=== PATIENT | male | born 1935 | race Hispanic/Latino ===

== ENCOUNTER 2020-03-15 09:10 | Emergency (ER) | payer MEDICARE, OTHER ==
[~2020-03-15] VITALS: Ht 165.1 cm; Wt 67.6 kg
[~2020-03-15 09:10] MED LIST: FELODIPINE ER10 MG PO; LISINOPRIL40 MG PO; LOVASTATIN40 MG PO; METOPROLOL TART25 MG PO; PRILOSEC20 MG PO
--- NOTE | 2020-03-15 09:25 | NUR ---
Patient breathing 40+ times per minute with oxygen saturation in the 70s and 80s on 15L NRB. ER MD at bedside and the decision was made to intubate. 0927 - 20 of Etomidate given IV 0928 - 100 of Succinylcholine given IV 0929 - 7.5 ET tube advanced with glydescope assistance to a depth of 26 at the lips with good bilateral chest rise and lung sounds 0930 - heart rate 94, Resp 20, BP 78/42, 93% 0931 - 20mcg of epi given IV 0932 - Heart rate 86, BP 115/45, resp 24, 94% Patient placed on ventilator with 100% FIO2 and 20peep.
[2020-03-15] MEDS ORDERED: EPINEPHRINE HCL SYRINGE ONE (09:28)
[2020-03-15] MEDS ORDERED: SODIUM CHLORIDE 0.9% 1000ML 1,000 ML ONE ×2 (09:30→11:50)
--- NOTE | 2020-03-15 09:38 | Emergency Department Note ---
History of Present Illnes History of Present Illness History of Present Illness This is a 84 year old male Chief Complaint Comment Patient in from [facility] via EMS with reports of shortness of breath and hypoxia with sats in the 80s. Patient was previously admitted to [facility] for a fall and subsequent brain bleed. Patient was discharged from [place] to [facility] and he presents to us lethargic/obtunded with no verbal response and no eye opening to any stimuli. Patient hypoxic in the 70s and 80s on 15L non rebreather mask. 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 Any updates have been documented here. Past Medical History Other Medical History: high cholesterol, acid reflux Other Surgery: cardiac stents, back surgery, Other Last Tetanus: unknown Review of Systems ROS Narrative Unable to obtain ROS: Unable to obtain due to (Unresonsive) Physical Exam Related Data Allergies: Coded Allergies: Tetanus Vaccines & Toxoid (Verified Allergy, Unknown, 07/04/13) Vital signs reviewed: Yes Physical Exam CONSTITUTIONAL Constitutional: Present well-developed, Present cachectic; Absent well-nourished HENT HENT: Present normocephalic, Present atraumatic, Present oropharynx clear/moist, Present nose normal, Present other (C spine in place, post inscisional no erythema) HENT L/R: Present left ext ear normal, Present right ext ear normal EYES Eyes: Reports PERRL, Reports conjunctivae normal NECK Neck: Present ROM normal PULMONARY Pulmonary: Present breath sounds normal, Present respiratory distress; Absent effort normal CARDIOVASCULAR Cardiovascular: Present regular rhythm, Present heart sounds normal, Present capillary refill normal, Present normal rate GASTROINTESTINAL Abdominal: Present soft, Present nontender, Present bowel sounds normal GENITOURINARY Genitourinary: Present exam deferred SKIN Skin: Present warm, Present dry MUSCULOSKELETAL Musculoskeletal: Present ROM normal NEUROLOGICAL Neurological: Present other (Unresponsive); Absent alert, Absent oriented x 3 PSYCHOLOGICAL Psychological: Present other (Unresponsive) Procedures 12 Lead ECG Interpretation ECG Interpretation : Date: Mar 15, 2020 Rhythm: sinus rhythm Rate: normal QRS axis: left ST segments normal: Yes T waves normal: Yes Clinical Impression: non-specific ECG Intubation Time out performed: Yes Sedative: Etomidate Paralytic: Succinylcholine Laryngoscope: Juan Miguel Endotracheal tube size: 7.5 ET tube uncuffed: Yes Tube secured depth (cm): 26 Tube secured location: lips Tube placement confirmation: visualize tube passing cords, equal breath sounds bilaterally, no breath sounds over epigastrium Patient tolerated procedure: well Complications: hypotension Additional comments Push dose epinephrine given x 3 Critical Care Time Total Critical Care Time (min): 45 Time ED Physician saw patient: 09:10 Critical care time exclusive o: separately billable procedures Critcal care necessary due to: READING INSTRUCTOR failure or compromise, respiratory failure Critcal care time spent by me: interpret cardiac output measures, evaluation patient response to tx, examination of patient, obtaining hx from patient/surrogate, order/perform tx or interventions, order/review laboratory studies, order/review radiographic studies, pulse oximetry, re-evaluation of patient condition, review of old charts, ventilator management Assessment & Plan Medical Decision Making MDM 84-year-old male with past medical history significant for recent fall and time unknown subarachnoid hemorrhage presents for respiratory distress. Patient was initially saturating in the 70s and room air. Nonrebreather brought him up to the low 80s he is subsequently intubated. Workup shows elevated white blood cell count. He was discussed with Dr. Jonatan Nichole at [facility] and will transfer ER to ER for Respiratory failure. Sepsis suspected at time of antibiotic order. Lactic acid was repeated if initial >2 30cc/kg crystalloid bolus was given. Vasopressors were started. Reassessment Reassessment time: 11:40 Reassessment BP stabilized Assessment & Plan Final Impression: (1) Respiratory failure Depart Disposition: TRANS TO OTHER [facility] Home Meds Reported Medications Felodipine (FELODIPINE ER) 10 Mg Tab.er.24h, 10 MG PO daily 07/03/13 Lovastatin (LOVASTATIN) 40 Mg Tablet, 40 MG PO daily 07/03/13 Metoprolol Tartrate (METOPROLOL TARTRATE) 25 Mg Tablet, 25 MG PO BID 07/03/13 Omeprazole (PRILOSEC) 20 Mg Capsule.dr, 20 MG PO DAILY 07/03/13 Lisinopril (LISINOPRIL) 40 Mg Tablet, 40 MG PO daily 07/03/13 Medications in the ED Epinephrine HCl 1 ea STK-MED ONCE .ROUTE ; Start 03/15/20 at 09:28; Stop 03/15/20 at 09:22; Status DC Sodium Chloride 1,000 ml @ STK-MED ONCE .ROUTE ; Start 03/15/20 at 09:30; Stop 03/15/20 at 09:24; Status DC CANDICE GLOVER MD Mar 15, 2020 09:38
--- OUTSIDE RECORDS SUMMARY | 2020-03-15 09:41 | XMS REPORT | Continuity of Care Document ---
Author Author [facility] t Organization [facility] Address [address] [place] [address] Phone Unavailable Care Team Providers Care Cutter Brake Lining Name Role Phone Unavailable Unavailable Payers Payer Name Policy Type Policy Number Effective Date Expiration Date S ource Problems This patient has no known problems. Allergies, Adverse Reactions, Alerts Allergy Name Allergy Type Status Severity Reaction(s) Onset Date Inacti ve Date Treating Clinician Comments Source No Known Allergies DA Active U 2019-04-12 00:00:00 [facility] No Known Contrast Allergies DA Active U 2006-10-06 00:00: 00 [facility] No Known Food Allergies DA Active U 2006-10-06 00:00:00 [facility] No Known Other Allergies DA Active U 2006-10-06 00:00:00 [facility] TETANUS DA Active U 2006-10-06 00:00:00 [facility] Medications This patient has no known medications. Procedures This patient has no known procedures. Results Test Description Test Time Test Comments Results Result Comments Source INTERVERTEBRAL DISC 2020-03-11 15:43:00 RUN DATE: 03/11/20 [place] - Lab PAGE 1 RUN TIME: 1543 Specimen Inquiry RUN USER: INTERFACE PATIENT: KB VACA LOC: ROJAS U #: [id number] AGE/SX: 84/M ROOM: [facility] RE03/06/20REG DR: Louie Farrell MD : 33 BED: A DIS: 03/10/20 STATUS: DIS IN TLOC: SPEC #: [id number] RECD: 03/10/20 STATUS: DERRICK RENegrito #: [id number] COLLIN: 03/09/20- SUBM DR: Louie Farrell MD ENTERED: 03/10/20 SP TYPE: INT DISC OTHR DR: No Primary or Family Physician Dre Browning MD, Dang Thanh MD Qureshi, Salah Uddin MDORDERED: GROSS COPIES TO: No Primary or Family Physician Dre Browning MD [address] [place] [address] Little Hernandez MD [address] [place] [address] Dexter Hayward MD [address] [place] [address] Louie Farrell MD [address] [place] [address] PROCEDURES: GROSS (03/11/20-111) TISSUES: CERVICAL VERTEBRA, NOS - DISC CLINICAL HISTORY COLLECTION DATE: 03/09/20 CERVICAL SPINAL STENOSIS WITH MYELOPATHY CONTINUED ON NEXT PAGE RUN DATE: 03/11/20 [facility] PAGE 2 RUN TIME: 1543 Specimen Inquiry RUN USER: INTERFACE SPEC #: [id number] PATIENT: KB VACA #[id number] (Continued) FINAL DIAGNOSIS Cervical disc, C4-5 and C5- 6, anterior cervical discectomy: INTERVERTEBRAL DISC MATERIAL BONE NEGATIVE FOR MALIGNANCY DMW/tito D 24667, 10288 MACROSCOPIC The specimen is received in formalin labeled with the patient's name, "cervical disc" and consists of irregular fragments of light barker fibrous type tissue and small fragments of possible bone. The specimen measures 3.0 x 2.5 x 0.5 cm in aggregate. Lead Engineer portions of tissue are submitted for decalcification and follow-up histologic evaluation in a single cassette. GROSS PERFORMED AT [facility] [address] [place] [address] [phone] MICROSCOPIC All of the stains, including any controls performed, stain appropriately. MICROSCOPIC PERFORMED AT [facility] [address] [place] [address] [phone] PERFORM[address] SITE Diagnosis performed at: [facility] [address] [facility] [place] [address] Signed SIGNATURE ON FILE Jenise Marcelino MD 03/11/20 1543 END OF REPORT - XR C-SPINE 2-3 VIEWS 2020-03-10 09:41:00 FAX: Dre Chilel MD [phone] [place]: B St: [facility] FAX: Louie Gan [facility] [phone] Name: KB VACA [facility] : 1935 Age/S: 84/M Citlali Trevon [facility] Unit #: [id number] Loc: V.[address] [place] [address] Phys: Dre Browning MD Acct: [id number] Dis Date: Status: ADM IN PHONE #: [phone] Exam Date: 03/10/2020 09 FAX #: [phone] Reason: Status post fusion EXAMS: CPT CODE: [id number] XR C-SPINE 2-3 VIEWS 43722 HISTORY: Post fusion. Location: [facility]. COMPARISON: None available. Cervical fusion with metallic plate and bone graft from C4 through C6 is in gross anatomic alignment although limited on the lateral view for C5 and C6 due to overlapping shoulder. Uncovertebral mago ints are narrowed. Soft tissue swelling from surgery. Osteopenia. Lung apices are clear. IMPRESSION: Gross anatomic alignment from C4 through C6 with metallic internal fixation plate and bone graft. C5 and C6 are partially obscured by overlapping shoulder on the lateral view. at 0941 Reported and signed by: Curtis Kyle M.D. CC: Dre Browning MD; Louie Farrell Technologist: Cherelle Bucio, RT(R); Coty Welch RT(R) Trnarrd Date/Time/By: 03/10/2020 (0941) : By: [email or web address] Orig Print D/T: S: 03/10/2020 (6747) PAGE 1 Signed Report COVID 19 Asymptomatic IH AG 2020-03-08 14:01:00 Test Item COVID 19 Asymptomatic IH AG (test code = COVNONPUIAG) NEGATIVE - MRI C-SPINE W/O [id number] 15:40:00 FAX: Dre Chilel MD [phone] [place]: B St: ADM FAX: Louie Gan [phone] Name: KB VACA [facility] : 1935 Age/S: 84/M Citlali Lester oleksandr Unit #: [id number] Loc: [place] [address] Phys: Dre Browning MD Acct: [id number] Dis Date: Status: ADM IN PHONE #: [phone] Exam Date: 03/07/2020 1522 FAX #: [phone] Reason: r/o cord contusion EXAMS: CPT CODE: [id number] MRI C-SPINE W/O CONT 50011 REASON FOR EXAM: r/o cord contusion Exam Order Date: 03/07/2020 12:52 PM Attending M.D.: Dre Browning MD Comparison: CT scan of the cervical spine the previous afternoon Procedure: - MRI C-SPINE W/O CONT FINDINGS: Sagittal and axial images of the cervical spine were obtained in in T1, T2, and proton den sity with fat saturation. No intravenous gadolinium was given. There is no fracture or spondylolisthesis of the cervical spine. The heights of the cervical spine are preserved. However there is height loss of the intervertebral discs throughout the cervical spine. C 2-C3: No foraminal narrowing or central canal narrowing. C3-C4: Disc bulge causes mild central canal narrowing and moderate to severe bilateral fora anna narrowing. C4-C5: Disc osteophyte complex causes severe narrowing of the central canal and bilateral neuroforamina. C5-C6: Disc osteophy te complex with facet degeneration results in severe narrowing of the cent ral canal and bilateral foramina. C6-C7: Disc osteophyte complex results i n moderate to severe central canal narrowing and moderate to severe bilate ral foraminal narrowing. C7-T1: Central canal and neuroforamina are widely patent. There is increased T2 signal of the spinal cord from the level of C4 to the level of C6. 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 Location: [facility] at 1540 Reported and signed by: Francis Valenzuela MD PAGE 1 Signed Report (CONTINUED) FAX: Dre Chilel MD [phone] [place]: St: ADM FAX: Y Louie Farrell [phone] Name: LAKISHA VACA [facility] : 1935 Age/S : 84/M [address] [facility] Unit #: [id number] Loc: [place] [address] Phys: Dre Browning MD Acct: [id number] Dis Date: Status: ADM IN PHONE #: [phone] Exam Date: 03/07/2020 1522 FAX #: [phone] Reason: r/o cord contusion EXAMS: CPT CODE: [id number] MRI C-SPINE W/O CONT 02504 <Continued> CC: Dre Browning MD; Louie Farrell [facility] Technologist: RT BOGDAN - MRI Trnarrd Date/Time/By: 03/07/2020 (1540) : By: [email or web address] Orig Print D/T: S: 03/07/2020 (7691) PAGE 2 Signed Report - CT HEAD/BRAIN W/O [id number] 07:24:00 Name: KB VACA [facility] : 1935 Age/S: 84 / M [address] [facility] Unit #: [id number] Loc: [place] [address] Phys: Lara Foster NP Acct: [id number] Dis Date: Status: ADM IN PHONE #: [phone] Exam Date: 03/07/2020 0430 FAX #: [phone] Reason: SAH Eval EXAMS: CPT CODE: [id number] CT HEAD/BRAIN W/O CONT 20621 HISTORY: Follow-up subarachnoid hemorrhage. COMPARISON: Head CT from previous day. CT brain without contrast: Automated exposure control. Location: [facility]. Trace right superior frontal subarachnoid hemorrhage noted again and is unchanged. No new hemorrhage. No extra-axial collections are noted. No acute territorial vascular infarction is noted. The sulci, gyri, ventricles and subarachnoid spaces and the basilar cisterns are normal for patient's age. No herniation or hydrocephalus or midline shift is noted. Mild periventricular ischemic gliosis is noted. Age- appropriate atrophy is noted as well. Portions of the visualized paranasal sinuses are normal. No obvious bony calvarial defect is noted. IMPRESSION: Trace right superior frontal subarachnoid hemorrhage is noted again and unchanged. No new hemorrhage. No extra-axial collections. No acute sahara torial vascular infarction. No herniation or hydrocephalus or midline shift. Chronic white matter ischemic disease and atro phy . at 0724 Reported and signed by: Curtis espitia M.D. PAGE 1 Signed Report (CONTINUED) Name: KB VACA [facility] : 1935 Age/S: 84 / M [address] Unit #: [id number] Loc: [place] [address] Ph ys: Lara Foster NP Acct: [id number] Dis Date: Status: ADM IN PHONE #: [phone] Exam Date: 03/07/2020 043 FAX #: [phone] Reason: SAH Eval EXAMS: CPT CODE: [id number] CT HEAD/BRAIN W/O CONT 17711 <Continued> CC: Lara Foster NP; Louie Farrell Technologist:BRYN HURT, RT; Leroy May CTDI: DLP: Trnscb Date/Time: 03/07/2020 (723) [email or web address] Orig Print D/T: S: 03/07/2020 (726) PAGE 2 Signed Report COMPREHENSIVE METABOLIC [id number] 04:05:00* Test Item Value Reference Range Interpretation Comments SODIUM (test code = NA) 138 mmol/L 136-145 N POTASSIUM (test code = K) 3.8 mmol/L 3.5-5.1 N CHLORIDE (test code = CL) 105.0 mmol/L 98-107 N CARBON DIOXIDE (test code = CO2) 25.0 mmol/L 21-32 N ANION GAP (test code = GAP) 11.8 10-20 N GLUCOSE (test code = GLU) 92 mg/dL 74-106 N BLOOD UREA NITROGEN (test code = BUN) 12 mg/dL 7-18 N GLOMERULAR FILTRATION RATE (test code = GFR) > 60 mL/min >=60 Estimated GFR by using Modified MDRD formula.Chronic kidney disease is defined as either kidney damageor GFR <60 mL/min/1.73 m2 for >3 months. CREATININE (test code = CREAT) 0.60 mg/dL 0.7-1.3 L BUN/CREATININE RATIO (test code = BUN/CREA) 21.2 10-20 H TOTAL PROTEIN (test code = PROT) 6.3 gram/dL 6.4-8.2 L ALBUMIN (test code = ALB) 3.0 g/dL 3.4-5.0 L GLOBULIN (test code = GLOB) 3.3 gram/dL 2.7-4.2 N ALBUMIN/GLOBULIN RATIO (test code = A/G) 0.9 0.75-1.50 N CALCIUM (test code = CA) 8.0 mg/dL 8.5-10.1 L BILIRUBIN TOTAL (test code = BILT) 0.60 mg/dL 0.0-1.0 N SGOT/AST (test code = AST) 16 IUnit/L 15-37 N SGPT/ALT (test code = ALT) 15 IUnit/L 12-78 N ALKALINE PHOSPHATASE TOTAL (test code = ALKP) 66 IUnit/L 45-117 N Note change in reference range due to change in reagent. [id number] 04:05:00* Test Item Value Reference Range Interpretation Comments PHOSPHORUS (test code = PHOS) 3.4 mg/dL 2.5-4.9 N [id number] 04:05:00* Test Item Value Reference Range Interpretation Comments MAGNESIUM (test code = MAG) 2.4 mg/dL 1.8-2.4 N CALCIUM [id number] 04:05:00* Test Item Value Reference Range Interpretation Comments CALCIUM IONIZED (test code = KULWINDER) 1.18 mmol/L 1.12-1.32 N COMPREHENSIVE METABOLIC [id number] 03:34:00* Test Item Value Reference Range Interpretation Comments SODIUM (test code = NA) 138 mmol/L 136-145 N POTASSIUM (test code = K) 3.8 mmol/L 3.5-5.1 N CHLORIDE (test code = CL) 105.0 mmol/L 98-107 N CARBON DIOXIDE (test code = CO2) 25.0 mmol/L 21-32 N ANION GAP (test code = GAP) 11.8 10-20 N GLUCOSE (test code = GLU) 92 mg/dL 74-106 N BLOOD UREA NITROGEN (test code = BUN) 12 mg/dL 7-18 N GLOMERULAR FILTRATION RATE (test code = GFR) > 60 mL/min >=60 Estimated GFR by using Modified MDRD formula.Chronic kidney disease is defined as either kidney damageor GFR <60 mL/min/1.73 m2 for >3 months. CREATININE (test code = CREAT) 0.60 mg/dL 0.7-1.3 L BUN/CREATININE RATIO (test code = BUN/CREA) 21.2 10-20 H TOTAL PROTEIN (test code = PROT) 6.3 gram/dL 6.4-8.2 L ALBUMIN (test code = ALB) 3.0 g/dL 3.4-5.0 L GLOBULIN (test code = GLOB) 3.3 gram/dL 2.7-4.2 N ALBUMIN/GLOBULIN RATIO (test code = A/G) 0.9 0.75-1.50 N CALCIUM (test code = CA) 8.0 mg/dL 8.5-10.1 L BILIRUBIN TOTAL (test code = BILT) 0.60 mg/dL 0.0-1.0 N SGOT/AST (test code = AST) 16 IUnit/L 15-37 N SGPT/ALT (test code = ALT) 15 IUnit/L 12-78 N ALKALINE PHOSPHATASE TOTAL (test code = ALKP) 66 IUnit/L 45-117 N Note change in reference range due to change in reagent. [id number] 03:34:00* Test Item Value Reference Range Interpretation Comments PHOSPHORUS (test code = PHOS) 3.4 mg/dL 2.5-4.9 N [id number] 03:34:00* Test Item Value Reference Range Interpretation Comments MAGNESIUM (test code = MAG) 2.4 mg/dL 1.8-2.4 N CALCIUM [id number] 03:34:00* Test Item Value Reference Range Interpretation Comments CALCIUM IONIZED (test code = KULWINDER) mmol/L 1.12-1.32 COMPREHENSIVE METABOLIC [id number] 03:13:00* Test Item Value Reference Range Interpretation Comments SODIUM (test code = NA) 138 mmol/L 136-145 N POTASSIUM (test code = K) 3.8 mmol/L 3.5-5.1 N CHLORIDE (test code = CL) 105.0 mmol/L 98-107 N CARBON DIOXIDE (test code = CO2) mmol/L 21-32 ANION GAP (test code = GAP) 10-20 GLUCOSE (test code = GLU) mg/dL 74-106 BLOOD UREA NITROGEN (test code = BUN) mg/dL 7-18 GLOMERULAR FILTRATION RATE (test code = GFR) mL/min >=60 CREATININE (test code = CREAT) mg/dL 0.7-1.3 BUN/CREATININE RATIO (test code = BUN/CREA) 10-20 TOTAL PROTEIN (test code = PROT) gram/dL 6.4-8.2 ALBUMIN (test code = ALB) g/dL 3.4-5.0 GLOBULIN (test code = GLOB) gram/dL 2.7-4.2 ALBUMIN/GLOBULIN RATIO (test code = A/G) 0.75-1.50 CALCIUM (test code = CA) mg/dL 8.5-10.1 BILIRUBIN TOTAL (test code = BILT) mg/dL 0.0-1.0 SGOT/AST (test code = AST) IUnit/L 15-37 SGPT/ALT (test code = ALT) IUnit/L 12-78 ALKALINE PHOSPHATASE TOTAL (test code = ALKP) IUnit/L 45-117 [id number] 03:13:00* Test Item Value Reference Range Interpretation Comments PHOSPHORUS (test code = PHOS) mg/dL 2.5-4.9 [id number] 03:13:00* Test Item Value Reference Range Interpretation Comments MAGNESIUM (test code = MAG) mg/dL 1.8-2.4 CALCIUM [id number] 03:13:00* Test Item Value Reference Range Interpretation Comments CALCIUM IONIZED (test code = KULWINDER) mmol/L 1.12-1.32 CBC W/AUTO [id number] 03:08:00* Test Item Value Reference Range Interpretation Comments WHITE BLOOD CELL (test code = WBC) 9.7 K/mm3 4.5-12.5 N RED BLOOD CELL (test code = RBC) 4.23 mill/mm3 4.0-5.8 N HEMOGLOBIN (test code = HGB) 13.6 gram/dL 13.0-17.5 N HEMATOCRIT (test code = HCT) 40.7 % 42.0-52.0 L MEAN CELL VOLUME (test code = MCV) 96.2 fL 80-98 N MEAN CELL HGB (test code = MCH) 32.2 picogram 27.0-33.0 N MEAN CELL HGB CONCETRATION (test code = MCHC) 33.4 gram/dL 33.0-36. 0 N RED CELL DISTRIBUTION WIDTH (test code = RDW) 12.5 % 11.6-16. 2 N RED CELL DISTRIBUTION WIDTH SD (test code = RDW-SD) 43.9 fL 37 .0-51.0 N PLATELET COUNT (test code = PLT) 197 K/mm3 150-450 N MEAN PLATELET VOLUME (test code = MPV) 10.4 fL 6.7-11.0 N NEUTROPHIL % (test code = NT%) 69.8 % 39.0-69.0 H IMMATURE GRANULOCYTE % (test code = IG%) 0.3 % 0.0-5.0 N LYMPHOCYTE % (test code = LY%) 18.7 % 25.0-55.0 L MONOCYTE % (test code = MO%) 10.3 % 0.0-10.0 H EOSINOPHIL % (test code = EO%) 0.5 % 0.0-5.0 N BASOPHIL % (test code = BA%) 0.4 % 0.0-1.0 N NUCLEATED RBC % (test code = NRBC%) 0.0 % 0-0 N NEUTROPHIL # (test code = NT#) 6.77 K/mm3 1.8-7.7 N IMMATURE GRANULOCYTE # (test code = IG#) 0.03 x10 3/uL 0-0.03 N LYMPHOCYTE # (test code = LY#) 1.82 K/mm3 1.0-5.0 N MONOCYTE # (test code = MO#) 1.00 K/mm3 0-0.8 H EOSINOPHIL # (test code = EO#) 0.05 K/mm3 0.0-0.5 N BASOPHIL # (test code = BA#) 0.04 K/mm3 0.0-0.2 N NUCLEATED RBC # (test code = NRBC#) 0.00 K/mm3 0.0-0.1 N MANUAL DIFF REQUIRED (test code = MDIFF) NO PROTHROMBIN [id number] 03:03:00* Test Item Value Reference Range Interpretation Comments PROTHROMBIN TIME PATIENT (test code = PTP) 13.1 seconds 9.0-14.0 N INTERNATIONAL NORMAL RATIO (test code = INR) 1.1 0.8-1.2 N The therapeutic range for oral anticoagulant therapy formost indications is an international normalized ratio (INR)of between 2.0 and 3.0. The recommended therapeutic INRrange for various clinical situations is listed below: Clinical Situation INR range Pulmonary e mbolism treatment (2.0-3.0)Venous thrombosis treatmentVenous thrombosis prophylaxis (high risk surgery)Prevention of systemic embolism from: Acute myocardial infarction Valvular heart disease Atrial fibrillation Mechanical prosthetic heart valves (2.5-3.5) IS PATIENT ON ANTICOAGULANTS? N- DUP AB/PEL/SC [id number] 23:26:00 [facility] 1935 [facility]S: 84 / M [address] [facility]: [id number] Loc: [place] [address] Phys: Louie Farrell MD Acct: [id number] Dis Date: Status: ADM IN PHONE #: Exam Date: 03/06/2020 7271 FAX #: Reason: ENLARGE SCROTUM EXAMS: CPT CODE: [id number] DUP AB/PEL/SC COMP 56221 HISTORY: Pain Locat ion: C3 FINDINGS: Sonographic images of the scrotum were ob tained. The testicles are mildly heterogeneous in appearance bilaterally with testicular flow noted bilaterally. Small right hydrocele in the larg e left hydrocele is demonstrated. No discrete testicular mass identified. IMPRESSION: 1. Small right-sided hydrocele wi th large left hydrocele. 2. Normal testicular flow bilaterally. at 2326 Reported and signed by: Tay Zuleta MD CC: Louie Farrell Technologist: Pati BOSWELL Trnarb Date/Time: 03/06/2020 (2 326) [id number] Orig Print D/T: S: 03/06/2020 (6355) P robe: PAGE 1 Signed Report - US SCROTUM AND [id number] 23:26:00 Name: KB VACA [facility] : 1935 Age/S: 84 / M [address] Unit #: [id number] Loc: [place], [place] [address] Phys: Alvin Gonzales MD Acct: [id number] Di s Date: Status: ADM IN PHONE #: Exam Date: 03/06/20202244 FAX #: [phone] Reason: scrotal enlargement, urinary retention EXAMS: CPT CODE: [id number] US SCROTUM AND CNTS 09428 HISTORY: Pain Locat ion: C3 FINDINGS: Sonographic images of the scrotum were ob tained. The testicles are mildly heterogeneous in appearance bilaterally with testicular flow noted bilaterally. Small right hydrocele in the larg e left hydrocele is demonstrated. No discrete testicular mass identified. IMPRESSION: 1. Small right-sided hydrocele wi th large left hydrocele. 2. Normal testicular flow bilaterally. at 2326 Reported and signed by: Tay Zuleta MD CC: Mary Gonzales MD; Louie Farrell Technologist: Pati BOSWELL Trnarb Date/Time: 03/06/2020 (2 326) [email or web address] Orig Print D/T: S: 03/06/2020 (8238) P robe: PAGE 1 Signed Report URINALYSIS [id number] 19:00:00* Test Item Value Reference Range Interpretation Comments UA COLOR (test code = COLU) COLORLESS YELLOW A UA APPEARANCE (test code = APPU) CLEAR CLEAR UA GLUCOSE DIPSTICK (test code = DGLUU) NEGATIVE mg/dL NEGATIVE UA BILIRUBIN DIPSTICK (test code = BILU) NEGATIVE mg/dL NEGATIVE UA KETONE DIPSTICK (test code = KETU) TRACE mg/dL NEGATIVE A UA SPECIFIC GRAVITY (test code = SGU) 1.005 1.001-1.035 UA BLOOD DIPSTICK (test code = LYLA) 0.03 mg/dL (Trace) mg/dL NEGATI VE A UA PH DIPSTICK (test code = KELSEY) 7.5 5.0-8.0 UA PROTEIN DIPSTICK (test code = PROU) NEGATIVE mg/dL NEGATIVE UA UROBILINIOGEN DIPSTICK (test code = URO) Normal mg/dL NEGATIVE UA NITRITE DIPSTICK (test code = SUJATHA) NEGATIVE NEGATIVE UA LEUKOCYTE ESTERASE W REFLEX (test code = LEUUR) NEGATIVE Duane/uL NEGATIVE UA WBC (test code = WBCU) per HPF 0-5 UA RBC (test code = RBCU) per HPF 0-5 UA EPITHELIAL CELLS (test code = EPIU) per HPF Few UA BACTERIA (test code = BACU) per HPF NONE Urine Source? Clean CatchDRUGS OF ABUSE SCREEN [id number] 19:00:00* Test Item Value Reference Range Interpretation Comments URN COCAINE (test code = COCAURN) NEGATIVE <300 ng/mL URN CANNABINOIDS (test code = CANNABURN) NEGATIVE <50 ng/mL URN AMPHETAMINE (test code = AMPHETURN) NEGATIVE <1000 ng/mL URN BARBITURATE (test code = BARBITURN) NEGATIVE <200 ng/mL URN BENZODIAZEPINE (test code = BENZOURN) NEGATIVE <200 ng/mL URN OPIATES (test code = OPIATURN) NEGATIVE <300 ng/mL URN PHENCYCLIDINE (PCP) (test code = PHENCURN) NEGATIVE <25 ng/ mL URN METHADONE (test code = METHAURN) NEGATIVE <300 ng/mL Urine Source? Clean CatchURINALYSIS [id number] 19:00:00* Test Item Value Reference Range Interpretation Comments UA COLOR (test code = COLU) COLORLESS YELLOW A UA APPEARANCE (test code = APPU) CLEAR CLEAR UA GLUCOSE DIPSTICK (test code = DGLUU) NEGATIVE mg/dL NEGATIVE UA BILIRUBIN DIPSTICK (test code = BILU) NEGATIVE mg/dL NEGATIVE UA KETONE DIPSTICK (test code = KETU) TRACE mg/dL NEGATIVE A UA SPECIFIC GRAVITY (test code = SGU) 1.005 1.001-1.035 UA BLOOD DIPSTICK (test code = LYLA) 0.03 mg/dL (Trace) mg/dL NEGATI VE A UA PH DIPSTICK (test code = KELSEY) 7.5 5.0-8.0 UA PROTEIN DIPSTICK (test code = PROU) NEGATIVE mg/dL NEGATIVE UA UROBILINIOGEN DIPSTICK (test code = URO) Normal mg/dL NEGATIVE UA NITRITE DIPSTICK (test code = SUJATHA) NEGATIVE NEGATIVE UA LEUKOCYTE ESTERASE W REFLEX (test code = LEUUR) NEGATIVE Duane/uL NEGATIVE UA WBC (test code = WBCU) 0-5 per HPF 0-5 UA RBC (test code = RBCU) 3-5 #/HPF 0-5 UA EPITHELIAL CELLS (test code = EPIU) None seen per HPF FEW UA BACTERIA (test code = BACU) NONE SEEN #/HPF NONE Urine Source? Clean CatchDRUGS OF ABUSE SCREEN [id number] 19:00:00* Test Item Value Reference Range Interpretation Comments URN COCAINE (test code = COCAURN) NEGATIVE <300 ng/mL URN CANNABINOIDS (test code = CANNABURN) NEGATIVE <50 ng/mL URN AMPHETAMINE (test code = AMPHETURN) NEGATIVE <1000 ng/mL URN BARBITURATE (test code = BARBITURN) NEGATIVE <200 ng/mL URN BENZODIAZEPINE (test code = BENZOURN) NEGATIVE <200 ng/mL URN OPIATES (test code = OPIATURN) NEGATIVE <300 ng/mL URN PHENCYCLIDINE (PCP) (test code = PHENCURN) NEGATIVE <25 ng/ mL URN METHADONE (test code = METHAURN) NEGATIVE <300 ng/mL Urine Source? Clean CatchURINALYSIS [id number] 18:57:00* Test Item Value Reference Range Interpretation Comments UA COLOR (test code = COLU) YELLOW UA APPEARANCE (test code = APPU) CLEAR UA BILIRUBIN DIPSTICK (test code = BILU) NEGATIVE UA SPECIFIC GRAVITY (test code = SGU) 1.001-1.035 UA PH DIPSTICK (test code = KELSEY) 5.0-8.0 UA UROBILINIOGEN DIPSTICK (test code = URO) mg/dL 0.0-0.2 UA NITRITE DIPSTICK (test code = SUJATHA) NEGATIVE UA LEUKOCYTE ESTERASE W REFLEX (test code = LEUUR) NEG ATIVE UA WBC (test code = WBCU) per HPF 0-5 UA RBC (test code = RBCU) per HPF 0-5 UA EPITHELIAL CELLS (test code = EPIU) per HPF Few UA BACTERIA (test code = BACU) per HPF NONE Urine Source? Clean CatchDRUGS OF ABUSE SCREEN [id number] 18:57:00* Test Item Value Reference Range Interpretation Comments URN COCAINE (test code = COCAURN) NEGATIVE <300 ng/mL URN CANNABINOIDS (test code = CANNABURN) NEGATIVE <50 ng/mL URN AMPHETAMINE (test code = AMPHETURN) NEGATIVE <1000 ng/mL URN BARBITURATE (test code = BARBITURN) NEGATIVE <200 ng/mL URN BENZODIAZEPINE (test code = BENZOURN) NEGATIVE <200 ng/mL URN OPIATES (test code = OPIATURN) NEGATIVE <300 ng/mL URN PHENCYCLIDINE (PCP) (test code = PHENCURN) NEGATIVE <25 ng/ mL URN METHADONE (test code = METHAURN) NEGATIVE <300 ng/mL Urine Source? Clean CatchB-TYPE NATRIURETIC [id number] 17:34:00* Test Item Value Reference Range Interpretation Comments B-TYPE NATRIURETIC PEPTIDE (test code = BNP) 571.14 pgram/mL 0-100 H BASIC METABOLIC [id number] 17:14:00* Test Item Value Reference Range Interpretation Comments SODIUM (test code = NA) 135 mmol/L 136-145 L POTASSIUM (test code = K) 3.9 mmol/L 3.5-5.1 N CHLORIDE (test code = CL) 102.0 mmol/L 98-107 N CARBON DIOXIDE (test code = CO2) 27.0 mmol/L 21-32 N ANION GAP (test code = GAP) 9.9 10-20 L GLUCOSE (test code = GLU) 87 mg/dL 74-106 N BLOOD UREA NITROGEN (test code = BUN) 14 mg/dL 7-18 N GLOMERULAR FILTRATION RATE (test code = GFR) > 60 mL/min >=60 Estimated GFR by using Modified MDRD formula.Chronic kidney disease is defined as either kidney damageor GFR <60 mL/min/1.73 m2 for >3 months. CREATININE (test code = CREAT) 0.70 mg/dL 0.7-1.3 N BUN/CREATININE RATIO (test code = BUN/CREA) 19.2 10-20 N CALCIUM (test code = CA) 8.2 mg/dL 8.5-10.1 L HEPATIC FUNCTION [id number] 17:14:00* Test Item Value Reference Range Interpretation Comments TOTAL PROTEIN (test code = PROT) 7.1 gram/dL 6.4-8.2 N ALBUMIN (test code = ALB) 3.4 g/dL 3.4-5.0 N GLOBULIN (test code = GLOB) 3.7 gram/dL 2.7-4.2 N ALBUMIN/GLOBULIN RATIO (test code = A/G) 0.9 0.75-1.50 N BILIRUBIN TOTAL (test code = BILT) 0.40 mg/dL 0.0-1.0 N BILIRUBIN DIRECT (test code = BILD) 0.12 mg/dL 0.0-0.20 N SGOT/AST (test code = AST) 16 IUnit/L 15-37 N SGPT/ALT (test code = ALT) 18 IUnit/L 12-78 N ALKALINE PHOSPHATASE TOTAL (test code = ALKP) 71 IUnit/L 45-117 N Note change in reference range due to change in reagent. CREATINE KINASE (CK)2020-03-06 17:14:00* Test Item Value Reference Range Interpretation Comments CREATINE KINASE (CK) (test code = CK) 179 IUnit/L 26-208 N [id number] 17:14:00* Test Item Value Reference Range Interpretation Comments LIPASE (test code = LIP) 130 U/L 73.0-393.0 N [id number] 17:14:00* Test Item Value Reference Range Interpretation Comments MAGNESIUM (test code = MAG) 2.3 mg/dL 1.8-2.4 N [id number] 17:14:00* Test Item Value Reference Range Interpretation Comments TROPONIN-I (test code = TROPI) 0.017 ng/mL 0-0.045 N [id number] 17:14:00* Test Item Value Reference Range Interpretation Comments ALCOHOL (test code = ALC) < 3 mg/dL 0.0-3.0 N -- INTERPRETIVE DATA NOTE: POSITIVE SCREENING RESULTS SHOULD BE CONSIDERED PRESUMPTIVE.WHEN COLLECTED FOR MEDICAL PURPOSES ONLY. SPECIMEN WILL NOTBE COLLECTED BY CHAIN OF CUSTODY.IF A CONFIRMATION OF POSITIVE RESULTS IS DESIRED, ACONFIRMATION TEST MUST BE REQUESTED BY THE PHYSICIAN AT ANADDITIONAL CHARGE TO THE PATIENT. BASIC METABOLIC [id number] 17:06:00* Test Item Value Reference Range Interpretation Comments SODIUM (test code = NA) 135 mmol/L 136-145 L POTASSIUM (test code = K) 3.9 mmol/L 3.5-5.1 N CHLORIDE (test code = CL) 102.0 mmol/L 98-107 N CARBON DIOXIDE (test code = CO2) mmol/L 21-32 ANION GAP (test code = GAP) 10-20 GLUCOSE (test code = GLU) mg/dL 74-106 BLOOD UREA NITROGEN (test code = BUN) mg/dL 7-18 GLOMERULAR FILTRATION RATE (test code = GFR) mL/min >=60 CREATININE (test code = CREAT) mg/dL 0.7-1.3 BUN/CREATININE RATIO (test code = BUN/CREA) 10-20 CALCIUM (test code = CA) mg/dL 8.5-10.1 HEPATIC FUNCTION [id number] 17:06:00* Test Item Value Reference Range Interpretation Comments TOTAL PROTEIN (test code = PROT) gram/dL 6.4-8.2 ALBUMIN (test code = ALB) g/dL 3.4-5.0 GLOBULIN (test code = GLOB) gram/dL 2.7-4.2 ALBUMIN/GLOBULIN RATIO (test code = A/G) 0.75-1.50 BILIRUBIN TOTAL (test code = BILT) mg/dL 0.0-1.0 BILIRUBIN DIRECT (test code = BILD) mg/dL 0.0-0.20 SGOT/AST (test code = AST) IUnit/L 15-37 SGPT/ALT (test code = ALT) IUnit/L 12-78 ALKALINE PHOSPHATASE TOTAL (test code = ALKP) IUnit/L 45-117 CREATINE KINASE (CK)2020-03-06 17:06:00* Test Item Value Reference Range Interpretation Comments CREATINE KINASE (CK) (test code = CK) IUnit/L 26-208 [id number] 17:06:00* Test Item Value Reference Range Interpretation Comments LIPASE (test code = LIP) U/L 73.0-393.0 [id number] 17:06:00* Test Item Value Reference Range Interpretation Comments MAGNESIUM (test code = MAG) mg/dL 1.8-2.4 [id number] 17:06:00* Test Item Value Reference Range Interpretation Comments TROPONIN-I (test code = TROPI) ng/mL 0-0.045 [id number] 17:06:00* Test Item Value Reference Range Interpretation Comments ALCOHOL (test code = ALC) mg/dL 0-3 - CT C-SPINE W/O [id number] 17:02:00 Name: KB V[facility] : 1935 Age/S: 84 / M [address] [facility] Unit #: [id number] Loc: [place] [address] Phys: Mary Gonzales MD Acct: [id number] Dis Date: Status: REG ER PHONE #: [phone] Exam Date: 03/06/2020 1642 FAX #: [phone] Reason: dizzy, fall EXAMS: CPT CODE: [id number] CT C-SPINE W/O CONTRAST 59099 HISTORY: dizzy, fall TECHNIQUE: Noncontrast 2.[address] of the head. 2.[address] of the cervical spine. Sagittal and coronal reformatted images were generated. . Examination acquired within 24 hours of arrival. Automated exposure control for dose reduction. COMPARISON: Brain MRI and head CT 11/16/2019 FINDINGS: HEAD CT: No lacerations or contusions of the scalp or facial soft tissues. Calvarium and skull base are intact. No acte or chronic infarct. No effacement of the sulci or ghosh-white matter interface. No acute hemorrhage. No intracranial mass, mass effect, or midline shift. Mild generalized atrophy. Mild patchy low densities appearance of the paraventricular region noted consistent with nonspecific white matter disease. No hydro cephalus.. Hyperdensity seen along the right superior frontal sulcus on se jennifer 3 image 51 measures 0.5 cm. Additional punctate hyperdensity within t he right precentral sulcus on series 3 image 56 is also noted. Visualized paranasal sinuses are clear. Mastoid air cells and middle e ar cavities are clear. Orbital contents are unremarkable. CERVICAL SPINE CT: No acute fracture of the cervical spine. No subluxation . Craniocervical and cervicothoracic articulations are appropriate. Vertebral body heights are preserved. Moderate to severe chronic degenerative changes of the cervical spine most significant at C5-C6. No p revertebral or paraspinal soft tissue abnormality. Visualized poste rior fossa contents are grossly unremarkable. Lung apices are clear. IMPRESSION: PAGE 1 Signed Report (CONTINUED) Name: KB [facility] : 1935 Age/S: 84 / M [address] [facility] Unit #: [id number] Loc: [place], [place] [address] Phys: Mary Gonzales MD Acct: [id number] Dis Date: Status: REG ER PHONE #: [phone] Exam Date: 03/06/2020 1642 FAX #: [phone] Reason: dizzy, fall EXAMS: CPT CODE: [id number] CT C-SPINE W/O CONTRAST 09222 < Continued> Small acute subarachnoid hemorrhage along the right superior frontal and precentral sulci. No acute abnormalities of the cervical spine. Mild generalized atrophy. Moderate chronic microvascular ischemic changes. Above findings discussed with Dr. Gonzales at 5:01 PM on 03/06/20. Location: [facility] at 1702 Reported and signed by: Johnny Bautista M.D. CC: Mary Gonzales MD Technologist:Nataliia Colin RT(R),CT; CTDI: DLP: Trnscb Date/Time: 03/06/2020 (170) [email or web address] Orig Print D/T: S: 03/06/2020 (9099) PAGE 2 Signed Report - CT HEAD/BRAIN W/O [id number] 17:02:00 Name: KB VACA [facility] : 1935 Age/S: 84 / M [address] [facility]: [id number] Loc: [place] [address] Phys: Alvin Gonzales MD Acct: [id number] Di s Date: Status: REG ER PHONE #: Exam Date: 03/06/2020 1642 FAX #: Reason: dizzy, fall EXAMS: CPT CODE: [id number] CT HEAD/BRAIN W/O CONT 07426 HISTORY: dizzy, fall TECHNIQUE: Noncontrast 2.[address] of the head. 2.[address] of the cervical spine. Sagittal and coronal reformatted images were g enerated. . Examination acquired within 24 hours of arrival. Automated exp osure control for dose reduction. COMPARISON: Brain MRI and head C T 11/16/2019 FINDINGS: HEAD CT: No lacerations or contusions of the scalp or facial soft tissues. Calvarium and skull ba se are intact. No acte or chronic infarct. No effacement of the olivares lci or ghosh-white matter interface. No acute hemorrhage. No intracranial m ass, mass effect, or midline shift. Mild generalized atroph y. Mild patchy low densities appearance of the paraventricular region note d consistent with nonspecific white matter disease. No hydro cephalus.. Hyperdensity seen along the right superior frontal sulcus on se jennifer 3 image 51 measures 0.5 cm. Additional punctate hyperdensity within t he right precentral sulcus on series 3 image 56 is also noted. Visualized paranasal sinuses are clear. Mastoid air cells and middle e ar cavities are clear. Orbital contents are unremarkable. CERVICAL SPINE CT: No acute fracture of the cervical spine. No subluxation . Craniocervical and cervicothoracic articulations are appropriate. Vertebral body heights are preserved. Moderate to severe chronic degenerative changes of the cervical spine most significant at C5-C6. No p revertebral or paraspinal soft tissue abnormality. Visualized poste rior fossa contents are grossly unremarkable. Lung apices are clear. IMPRESSION: PAGE 1 Signed Report (CONTINUED) Name: KB [facility] : 1935 Age/S: 84 / M [facility] Unit #: [id number] Loc: [place] [address] Phys: Mary Gonzales MD Acct: [id number] Dis Date: Status: REG ER PHONE #: [phone] Exam Date: 03/06/2020 1642 FAX #: [phone] Reason: dizzy, fall EXAMS: CPT CODE: [id number] CT HEAD/BRAIN W/O CONT 29286 < Continued> Small acute subarachnoid hemorrhage along the right superior frontal and precentral sulci. No acute abnormalities of the cervical spine. Mild generalized atrophy. Moderate chronic microvascular ischemic changes. Above findings discussed with Dr. Gonzales at 5:01 PM on 03/06/20. Location: [facility] at 1702 Reported and signed by: Johnny Bautista M.D. CC: Mary Gonzales MD Technologist:Nataliia Colin RT(R),CT; CTDI: DLP: Trnscb Date/Time: 03/06/2020 (170) [email or web address] Orig Print D/T: S: 03/06/2020 (170) PAGE 2 Signed Report PROTHROMBIN [id number] 17:01:00* Test Item Value Reference Range Interpretation Comments PROTHROMBIN TIME PATIENT (test code = PTP) 12.8 seconds 9.0-14.0 N INTERNATIONAL NORMAL RATIO (test code = INR) 1.1 0.8-1.2 N The therapeutic range for oral anticoagulant therapy formost indications is an international normalized ratio (INR)of between 2.0 and 3.0. The recommended therapeutic INRrange for various clinical situations is listed below: Clinical Situation INR range Pulmonary e mbolism treatment (2.0-3.0)Venous thrombosis treatmentVenous thrombosis prophylaxis (high risk surgery)Prevention of systemic embolism from: Acute myocardial infarction Valvular heart disease Atrial fibrillation Mechanical prosthetic heart valves (2.5-3.5) IS PATIENT ON ANTICOAGULANTS? NTHROMBOPLASTIN TIME [id number] 17:01:00* Test Item Value Reference Range Interpretation Comments THROMBOPLASTIN TIME PARTIAL (test code = PTT) 35.5 seconds 23.0-37. 0 N IS PATIENT ON ANTICOAGULANTS? NCBC W/O [id number] 16:46:00* Test Item Value Reference Range Interpretation Comments WHITE BLOOD CELL (test code = WBC) 9.4 K/mm3 4.5-12.5 N RED BLOOD CELL (test code = RBC) 4.19 mill/mm3 4.0-5.8 N HEMOGLOBIN (test code = HGB) 13.7 gram/dL 13.0-17.5 N HEMATOCRIT (test code = HCT) 40.5 % 42.0-52.0 L MEAN CELL VOLUME (test code = MCV) 96.7 fL 80-98 N MEAN CELL HGB (test code = MCH) 32.7 picogram 27.0-33.0 N MEAN CELL HGB CONCETRATION (test code = MCHC) 33.8 gram/dL 33.0-36. 0 N RED CELL DISTRIBUTION WIDTH (test code = RDW) 12.6 % 11.6-16. 2 N PLATELET COUNT (test code = PLT) 198 K/mm3 150-450 N MEAN PLATELET VOLUME (test code = MPV) 9.9 fL 6.7-11.0 N - XR CHEST 1 [id number] 16:30:00 FAX: Mary Gonzales MD [phone] [place]: B St: REG Name: KB MEDRANO [facility] : [birth year] Age/S: 84/M [facility] Unit #: [id number] Loc: [place] [address] Phys: Mary Gonzales MD Acct: [id number] Dis Date: Status: REG ER PHONE #: [phone] Exam Date: 03/06/2020 1627 FAX #: [phone] Reason: WEAKNESS EXAMS: CPT CODE: [id number] XR CHEST 1 V 51489 REASON FOR EXAM: WEAKNESS Exam Order Date: 03/06/2020 4:03 PM Ordering M.D.: Mary Gonzales MD PROCEDURE: - XR CHEST 1 V COMPARISON: Chest x-ray 04/12/2019 FINDINGS: Lines/Tubes: None The lungs are clear. There is no pleural effusion or pneumothorax. Pulmonary vascularity is within normal limits. Cardio mediastinal silhouette and mediastinal contours are unchanged when account ing for differences in technique. Musculoskeletal structures and visualized portions of the upper abdomen are also unchanged. IMPRESSION: No acute cardiopulmonary process. Location: [facility] Electronically Signed by Johnny Bautista M.D. on 2019 at 1630 Reported and signed by: Johnny Bautista M.D. CC: Mary Gonzales MD Technologist: Aicha Ingram RT(R) Trnscrd Date/Time/By: 0 03/06/2020 (163) : By: [email or web address] [facility] Print D/T: S: 03/06/2020 (8933) PAGE 1 Signed Report AB [id number] 18:54:00* Test Item Value Reference Range Interpretation Comments AB TREPONEMA (test code = TREPAB) Nonreactive Index NonReactive BASIC METABOLIC [id number] 18:40:00* Test Item Value Reference Range Interpretation Comments SODIUM (test code = NA) 143 mmol/L 136-145 N POTASSIUM (test code = K) 3.7 mmol/L 3.5-5.1 N CHLORIDE (test code = CL) 109.0 mmol/L 98-107 H CARBON DIOXIDE (test code = CO2) 25.0 mmol/L 21-32 N ANION GAP (test code = GAP) 12.7 10-20 N GLUCOSE (test code = GLU) 131 mg/dL 74-106 H BLOOD UREA NITROGEN (test code = BUN) 18 mg/dL 7-18 N GLOMERULAR FILTRATION RATE (test code = GFR) > 60 mL/min >=60 Estimated GFR by using Modified MDRD formula.Chronic kidney disease is defined as either kidney damageor GFR <60 mL/min/1.73 m2 for >3 months. CREATININE (test code = CREAT) 0.80 mg/dL 0.7-1.3 N BUN/CREATININE RATIO (test code = BUN/CREA) 22.5 10-20 H CALCIUM (test code = CA) 8.4 mg/dL 8.5-10.1 L BASIC METABOLIC [id number] 18:38:00* Test Item Value Reference Range Interpretation Comments SODIUM (test code = NA) 143 mmol/L 136-145 N POTASSIUM (test code = K) 3.7 mmol/L 3.5-5.1 N CHLORIDE (test code = CL) 109.0 mmol/L 98-107 H CARBON DIOXIDE (test code = CO2) mmol/L 21-32 ANION GAP (test code = GAP) 10-20 GLUCOSE (test code = GLU) mg/dL 74-106 BLOOD UREA NITROGEN (test code = BUN) mg/dL 7-18 GLOMERULAR FILTRATION RATE (test code = GFR) mL/min >=60 CREATININE (test code = CREAT) mg/dL 0.7-1.3 BUN/CREATININE RATIO (test code = BUN/CREA) 10-20 CALCIUM (test code = CA) 8.4 mg/dL 8.5-10.1 L CBC W/O [id number] 18:22:00* Test Item Value Reference Range Interpretation Comments WHITE BLOOD CELL (test code = WBC) 6.7 K/mm3 4.5-12.5 N RED BLOOD CELL (test code = RBC) 4.47 mill/mm3 4.0-5.8 N HEMOGLOBIN (test code = HGB) 14.4 gram/dL 13.0-17.5 N HEMATOCRIT (test code = HCT) 42.5 % 42.0-52.0 N MEAN CELL VOLUME (test code = MCV) 95.1 fL 80-98 N MEAN CELL HGB (test code = MCH) 32.2 picogram 27.0-33.0 N MEAN CELL HGB CONCETRATION (test code = MCHC) 33.9 gram/dL 33.0-36. 0 N RED CELL DISTRIBUTION WIDTH (test code = RDW) 12.7 % 11.6-16. 2 N PLATELET COUNT (test code = PLT) 189 K/mm3 150-450 N MEAN PLATELET VOLUME (test code = MPV) 10.4 fL 6.7-11.0 N CBC W/O [id number] 18:19:00* Test Item Value Reference Range Interpretation Comments WHITE BLOOD CELL (test code = WBC) K/mm3 4.5-12.5 RED BLOOD CELL (test code = RBC) mill/mm3 4.0-5.8 HEMOGLOBIN (test code = HGB) 14.4 gram/dL 13.0-17.5 N HEMATOCRIT (test code = HCT) 42.5 % 42.0-52.0 N MEAN CELL VOLUME (test code = MCV) fL 80-98 MEAN CELL HGB (test code = MCH) picogram 27.0-33.0 MEAN CELL HGB CONCETRATION (test code = MCHC) gram/dL 33.0-36. 0 RED CELL DISTRIBUTION WIDTH (test code = RDW) % 11.6-16. 2 PLATELET COUNT (test code = PLT) K/mm3 150-450 MEAN PLATELET VOLUME (test code = MPV) fL 6.7-11.0 URINALYSIS [id number] 12:05:00* Test Item Value Reference Range Interpretation Comments UA COLOR (test code = COLU) Light-Yellow YELLOW UA APPEARANCE (test code = APPU) CLEAR CLEAR UA GLUCOSE DIPSTICK (test code = DGLUU) NEGATIVE mg/dL NEGATIVE UA BILIRUBIN DIPSTICK (test code = BILU) NEGATIVE mg/dL NEGATIVE UA KETONE DIPSTICK (test code = KETU) NEGATIVE mg/dL NEGATIVE UA SPECIFIC GRAVITY (test code = SGU) 1.011 1.001-1.035 UA BLOOD DIPSTICK (test code = LYLA) Negative mg/dL NEGATIVE UA PH DIPSTICK (test code = KELSEY) 6.0 5.0-8.0 UA PROTEIN DIPSTICK (test code = PROU) NEGATIVE mg/dL NEGATIVE UA UROBILINIOGEN DIPSTICK (test code = URO) Normal mg/dL NEGATIVE UA NITRITE DIPSTICK (test code = SUJATHA) NEGATIVE NEGATIVE UA LEUKOCYTE ESTERASE W REFLEX (test code = LEUUR) NEGATIVE Duane/uL NEGATIVE UA WBC (test code = WBCU) 0-5 per HPF 0-5 UA RBC (test code = RBCU) 0-2 #/HPF 0-5 UA EPITHELIAL CELLS (test code = EPIU) None seen per HPF FEW UA BACTERIA (test code = BACU) NONE SEEN #/HPF NONE UA MUCUS (test code = MUCU) FEW #/LPF FEW COMMENTS TO TUBE BENDER: OK TO STRAIGHT CATH FOR SAMPLE IF NEEDEDUrine Source? Clean CatchURINALYSIS [id number] 12:03:00* Test Item Value Reference Range Interpretation Comments UA COLOR (test code = COLU) Light-Yellow YELLOW UA APPEARANCE (test code = APPU) CLEAR CLEAR UA GLUCOSE DIPSTICK (test code = DGLUU) NEGATIVE mg/dL NEGATIVE UA BILIRUBIN DIPSTICK (test code = BILU) NEGATIVE mg/dL NEGATIVE UA KETONE DIPSTICK (test code = KETU) NEGATIVE mg/dL NEGATIVE UA SPECIFIC GRAVITY (test code = SGU) 1.011 1.001-1.035 UA BLOOD DIPSTICK (test code = LYLA) Negative mg/dL NEGATIVE UA PH DIPSTICK (test code = KELSEY) 6.0 5.0-8.0 UA PROTEIN DIPSTICK (test code = PROU) NEGATIVE mg/dL NEGATIVE UA UROBILINIOGEN DIPSTICK (test code = URO) Normal mg/dL NEGATIVE UA NITRITE DIPSTICK (test code = SUJATHA) NEGATIVE NEGATIVE UA LEUKOCYTE ESTERASE W REFLEX (test code = LEUUR) NEGATIVE Duane/uL NEGATIVE UA WBC (test code = WBCU) per HPF 0-5 UA RBC (test code = RBCU) per HPF 0-5 UA EPITHELIAL CELLS (test code = EPIU) per HPF Few UA BACTERIA (test code = BACU) per HPF NONE COMMENTS TO TUBE BENDER: OK TO STRAIGHT CATH FOR SAMPLE IF NEEDEDUrine Source? Clean Catch- MRI BRAIN W/O [id number] 10:34:00 FAX: Yony Arcos [phone] [place]: B St: ADM FAX: Louie Ganh [phone] Name: KB V[facility] : 1935 Age/S: 83/M [address] Unit #: [id number] Loc: [place] [address] Phys: Yony Arcos MD Acct: [id number] Dis Date: Status: ADM IN PHONE #: [phone] Exam Date: 11/02/2019 1015 FAX #: [phone] Reason: dizziness EXAMS: CPT CODE: [id number] MRI BRAIN W/O CONTRAST 81434 HISTORY: Dizziness. COMPARISON: Head CT from October 31, 2019. Location: [facility]. MRI brain without contrast: No acute territorial vascular or acute lacunar infarction. No MR evidence for hemorrhage is noted. Amyloid angiopathy noted. No extra-axial fluid collections. Chronic white matter ischemic disease in the per iventricular distribution and scattered lesions in the centrum semiovale w zuleyka matter and in the cortical and the subcortical deep white matter. No herniation, hydrocephalus or midline shift. Fourth ventricle is midline. Expected flow-voids noted within the major intracranial vasculature. VII and VIII nerve complex are symmetrical and normal. Mastoid air cells are clear. Mucosal thickening of the ethmoid air cells. Intraorbital contents are unremarkable. Midbrain, britta and medulla are without mass effect. No cerebellar ectopia. Pituitary gland, optic chiasm and co rpus callosum are normal with marked atrophy of the corpus callosum along with global cortical atrophy. Clivus demonstrating normal marrow signal. S ymmetrical hippocampi. No mesial temporal sclerosis. No parenchymal mass o n this noncontrast study. IMPRESSION: No acute territorial vascular or acute lacunar infarct. Chronic white lambert er ischemic disease. Electronically Signed by Carolyn Kyle on 0 11/02/2019 at 1034 Reported and signed by: Curtis Kyle M.D. CC: Yony Arcos MD; Louie Farrell Technolog ist: ERLINDA ROBERTSRT - MRI Trnscrd Date/Time/By : 11/02/2019 (1034) : By: [email or web address] Orig Print D/T: S: 11/02/2019 (103 7) PAGE 1 Signed Report BASIC METABOLIC [id number] 06:43:00* Test Item Value Reference Range Interpretation Comments SODIUM (test code = NA) 141 mmol/L 136-145 N POTASSIUM (test code = K) 3.6 mmol/L 3.5-5.1 N CHLORIDE (test code = CL) 109.0 mmol/L 98-107 H CARBON DIOXIDE (test code = CO2) 25.0 mmol/L 21-32 N ANION GAP (test code = GAP) 10.6 10-20 N GLUCOSE (test code = GLU) 118 mg/dL 74-106 H BLOOD UREA NITROGEN (test code = BUN) 14 mg/dL 7-18 N GLOMERULAR FILTRATION RATE (test code = GFR) > 60 mL/min >=60 Estimated GFR by using Modified MDRD formula.Chronic kidney disease is defined as either kidney damageor GFR <60 mL/min/1.73 m2 for >3 months. CREATININE (test code = CREAT) 0.80 mg/dL 0.7-1.3 N BUN/CREATININE RATIO (test code = BUN/CREA) 17.5 10-20 N CALCIUM (test code = CA) 8.3 mg/dL 8.5-10.1 L [id number] 06:43:00* Test Item Value Reference Range Interpretation Comments PHOSPHORUS (test code = PHOS) 2.6 mg/dL 2.5-4.9 N URIC [id number] 06:43:00* Test Item Value Reference Range Interpretation Comments URIC ACID (test code = URIC) 5.1 mg/dL 2.6-7.2 N [id number] 06:43:00* Test Item Value Reference Range Interpretation Comments MAGNESIUM (test code = MAG) 2.6 mg/dL 1.8-2.4 H VITAMIN [id number] 06:43:00* Test Item Value Reference Range Interpretation Comments VITAMIN B12 (test code = VITB12) 243 pg/mL 193-986 N FOLIC [id number] 06:43:00* Test Item Value Reference Range Interpretation Comments FOLIC ACID (test code = FOL) 17.0 ng/mL 3.10-17.50 N THYROID PROFILE [id number] 06:43:00* Test Item Value Reference Range Interpretation Comments T3 UPTAKE (test code = T3UP) 38.0 % 30.0-40.0 N T4 (THYROXINE) (test code = T4) 8.6 ug/dL 4.5-13.9 N T7 (FREE THYROXINE INDEX) (test code = T7) 3.26 FTI 1.3-5.1 N THYROID STIMULATING HORMONE (test code = TSH) 1.080 uIU/mL 0.36-3.7 4 N TSH REFERENCE RANGES: EUTHYROID: 0.35 - 4.3 mIU/mL HYPO : > 5.5 mIU/mL HYPER : < 0.35 mIU/mL [id number] 06:11:00* Test Item Value Reference Range Interpretation Comments AMMONIA (test code = AMM) 15 umol/L 11-32 N BASIC METABOLIC [id number] 06:03:00* Test Item Value Reference Range Interpretation Comments SODIUM (test code = NA) 141 mmol/L 136-145 N POTASSIUM (test code = K) 3.6 mmol/L 3.5-5.1 N CHLORIDE (test code = CL) 109.0 mmol/L 98-107 H CARBON DIOXIDE (test code = CO2) mmol/L 21-32 ANION GAP (test code = GAP) 10-20 GLUCOSE (test code = GLU) mg/dL 74-106 BLOOD UREA NITROGEN (test code = BUN) mg/dL 7-18 GLOMERULAR FILTRATION RATE (test code = GFR) mL/min >=60 CREATININE (test code = CREAT) mg/dL 0.7-1.3 BUN/CREATININE RATIO (test code = BUN/CREA) 10-20 CALCIUM (test code = CA) mg/dL 8.5-10.1 [id number] 06:03:00* Test Item Value Reference Range Interpretation Comments PHOSPHORUS (test code = PHOS) mg/dL 2.5-4.9 URIC [id number] 06:03:00* Test Item Value Reference Range Interpretation Comments URIC ACID (test code = URIC) mg/dL 2.6-7.2 [id number] 06:03:00* Test Item Value Reference Range Interpretation Comments MAGNESIUM (test code = MAG) mg/dL 1.8-2.4 VITAMIN [id number] 06:03:00* Test Item Value Reference Range Interpretation Comments VITAMIN B12 (test code = VITB12) pg/mL 193-986 FOLIC [id number] 06:03:00* Test Item Value Reference Range Interpretation Comments FOLIC ACID (test code = FOL) ng/mL 3.10-17.50 THYROID PROFILE [id number] 06:03:00* Test Item Value Reference Range Interpretation Comments T3 UPTAKE (test code = T3UP) % 30.0-40.0 T4 (THYROXINE) (test code = T4) ug/dL 4.5-13.9 T7 (FREE THYROXINE INDEX) (test code = T7) FTI 1.3-5.1 THYROID STIMULATING HORMONE (test code = TSH) uIU/mL 0.36-3.7 4 CBC W/AUTO [id number] 05:48:00* Test Item Value Reference Range Interpretation Comments WHITE BLOOD CELL (test code = WBC) 10.2 K/mm3 4.5-12.5 N RED BLOOD CELL (test code = RBC) 4.73 mill/mm3 4.0-5.8 N HEMOGLOBIN (test code = HGB) 15.1 gram/dL 13.0-17.5 N HEMATOCRIT (test code = HCT) 44.9 % 42.0-52.0 N MEAN CELL VOLUME (test code = MCV) 94.9 fL 80-98 N MEAN CELL HGB (test code = MCH) 31.9 picogram 27.0-33.0 N MEAN CELL HGB CONCETRATION (test code = MCHC) 33.6 gram/dL 33.0-36. 0 N RED CELL DISTRIBUTION WIDTH (test code = RDW) 12.7 % 11.6-16. 2 N RED CELL DISTRIBUTION WIDTH SD (test code = RDW-SD) 44.1 fL 37 .0-51.0 N PLATELET COUNT (test code = PLT) 187 K/mm3 150-450 N MEAN PLATELET VOLUME (test code = MPV) 10.5 fL 6.7-11.0 N NEUTROPHIL % (test code = NT%) 73.5 % 39.0-69.0 H IMMATURE GRANULOCYTE % (test code = IG%) 0.2 % 0.0-5.0 N LYMPHOCYTE % (test code = LY%) 15.3 % 25.0-55.0 L MONOCYTE % (test code = MO%) 10.1 % 0.0-10.0 H EOSINOPHIL % (test code = EO%) 0.4 % 0.0-5.0 N BASOPHIL % (test code = BA%) 0.5 % 0.0-1.0 N NUCLEATED RBC % (test code = NRBC%) 0.0 % 0-0 N NEUTROPHIL # (test code = NT#) 7.50 K/mm3 1.8-7.7 N IMMATURE GRANULOCYTE # (test code = IG#) 0.02 x10 3/uL 0-0.03 N LYMPHOCYTE # (test code = LY#) 1.56 K/mm3 1.0-5.0 N MONOCYTE # (test code = MO#) 1.03 K/mm3 0-0.8 H EOSINOPHIL # (test code = EO#) 0.04 K/mm3 0.0-0.5 N BASOPHIL # (test code = BA#) 0.05 K/mm3 0.0-0.2 N NUCLEATED RBC # (test code = NRBC#) 0.00 K/mm3 0.0-0.1 N MANUAL DIFF REQUIRED (test code = MDIFF) NO [id number] 02:57:00* Test Item Value Reference Range Interpretation Comments TROPONIN-I (test code = TROPI) 0.079 ng/mL 0-0.045 HH Results called to [id number] by V.LAB.GP 11/01/19 0257Critical results verified and read back by Nurse? Y COMMENTS TO TUBE BENDER: COLLECT 3 HOURS AFTER PREVIOUS [id number] 21:21:00* Test Item Value Reference Range Interpretation Comments TROPONIN-I (test code = TROPI) 0.066 ng/mL 0-0.045 HH Results called to [id number] by V.LAB.QUR 10/31/19 2121Critical results verified and read back by Nurse? Y COMMENTS TO TUBE BENDER: COLLECT 3 HOURS AFTER PREVIOUS SAMPLE- CT HEAD/BRAIN W/O [id number] 14:15:00 [facility] 1935 Age/S: 83 / M [place] [facility] Unit #: [id number] Loc: [place] [address] Phys: Yony Arcos MD Acct: [id number] Dis Date: Status: REG ER PHONE #: [phone] Exam Date: 10/31/2019 1403 FAX #: [phone] Reason: altered, syncope in ed EXAMS: CPT CODE: [id number] CT HEAD/BRAIN W/O CONT [id number] HISTORY: altered, syncope in ed TECHNIQUE: Noncontrast 2.[address] of the head. Examination acquired within 24 hours of arrival. Automated exposure control for dose reduction; DLP: 870 mGy-cm. COMPARISON: Same date, 2.5 hours earlier FINDINGS: No acute hemorrhage. No CT evidence of acute infarct. Mild periventricular chronic microvascular ischemic changes. No intracranial mass or mass effect. Moderate parenchymal atrophy. No hydrocephalus. No extra-axial fluid collection. Atherosclerotic vascular calcification of the carotid siphons. Trace bilateral maxillary sinus mucosal thickening. Mastoid air cells and middle ear cavities are clear. Bilateral lens implants. Calvarium and skull base are intact. IMPRESSION: No acute intracranial process. LOCATION: LP at 1415 Reported and signed by: Gabby Hernandez D.O. CC: Yony Arcos MD Technologist:Nuris Ken RT(R)(CT) CTDI: DLP: Trnscb Date/Time: 10/31/2019 (1415) [email or web address] Orig Print D/T: S: 10/31/2019 (1418) PAGE 1 Signed Report GLUBED 2019-10-31 13:51:00* Test Item Value Reference Range Interpretation Comments GLUBED (test code = GLUBED) 106 mg/dL 74-106 N Performed by certified deburring and tooling machine operator at [facility] BASIC METABOLIC [id number] 13:30:00* Test Item Value Reference Range Interpretation Comments SODIUM (test code = NA) 140 mmol/L 136-145 N POTASSIUM (test code = K) 4.3 mmol/L 3.5-5.1 N CHLORIDE (test code = CL) 104.9 mmol/L 98-107 N CARBON DIOXIDE (test code = CO2) 30.0 mmol/L 21-32 N ANION GAP (test code = GAP) 9.4 10-20 L GLUCOSE (test code = GLU) 55 mg/dL 74-106 L BLOOD UREA NITROGEN (test code = BUN) 12 mg/dL 7-18 N GLOMERULAR FILTRATION RATE (test code = GFR) > 60 mL/min >=60 Estimated GFR by using Modified MDRD formula.Chronic kidney disease is defined as either kidney damageor GFR <60 mL/min/1.73 m2 for >3 months. CREATININE (test code = CREAT) 0.20 mg/dL 0.7-1.3 L BUN/CREATININE RATIO (test code = BUN/CREA) 60.0 10-20 H CALCIUM (test code = CA) 8.6 mg/dL 8.5-10.1 N [id number] 13:30:00* Test Item Value Reference Range Interpretation Comments TROPONIN-I (test code = TROPI) 0.022 ng/mL 0-0.045 N CBC W/O [id number] 13:02:00* Test Item Value Reference Range Interpretation Comments WHITE BLOOD CELL (test code = WBC) 6.3 K/mm3 4.5-12.5 N RED BLOOD CELL (test code = RBC) 4.30 mill/mm3 4.0-5.8 N HEMOGLOBIN (test code = HGB) 13.8 gram/dL 13.0-17.5 N HEMATOCRIT (test code = HCT) 41.3 % 42.0-52.0 L MEAN CELL VOLUME (test code = MCV) 96.0 fL 80-98 N MEAN CELL HGB (test code = MCH) 32.1 picogram 27.0-33.0 N MEAN CELL HGB CONCETRATION (test code = MCHC) 33.4 gram/dL 33.0-36. 0 N RED CELL DISTRIBUTION WIDTH (test code = RDW) 12.4 % 11.6-16. 2 N PLATELET COUNT (test code = PLT) 188 K/mm3 150-450 N MEAN PLATELET VOLUME (test code = MPV) 11.1 fL 6.7-11.0 H CBC W/O [id number] 12:59:00* Test Item Value Reference Range Interpretation Comments WHITE BLOOD CELL (test code = WBC) K/mm3 4.5-12.5 RED BLOOD CELL (test code = RBC) mill/mm3 4.0-5.8 HEMOGLOBIN (test code = HGB) 13.8 gram/dL 13.0-17.5 N HEMATOCRIT (test code = HCT) % 42.0-52.0 MEAN CELL VOLUME (test code = MCV) fL 80-98 MEAN CELL HGB (test code = MCH) picogram 27.0-33.0 MEAN CELL HGB CONCETRATION (test code = MCHC) gram/dL 33.0-36. 0 RED CELL DISTRIBUTION WIDTH (test code = RDW) % 11.6-16. 2 PLATELET COUNT (test code = PLT) K/mm3 150-450 MEAN PLATELET VOLUME (test code = MPV) fL 6.7-11.0 - CT C-SPINE W/O [id number] 11:58:00 Name: KB VACA [facility] : 1935 Age/S: 83 / M [address] [facility] Unit #: [id number] Loc: [place] [address] Phys: Yony Arcos MD Acct: [id number] Dis Date: Status: PRE ER PHONE #: [phone] Exam Date: 10/31/2019 1140 FAX #: [phone] Reason: pain EXAMS: CPT CODE: [id number] CT C-SPINE W/O CONTRAST [id number] HISTORY: pain, head trauma TECHNIQUE: 2.[address] of the cervical spine. Sagittal and coronal reformatted images were generated. Automated exposure control for dose reduction. COMPARISON: None FINDINGS: Craniocervical and cervicothoracic articulations are appropriate. Degenerative changes of the anterior atlantoaxial joint. Cervical levoscoliosis and reversal of the lordosis. Grade 1 retrolisthesis at C4-C5. Vertebral body heights are preserved. Severe disc space loss with disc bulge, marginal osteophytes, and uncovertebral arthrosis from C3-C4 through C6-C7. Mild disc space loss with marginal osteophytes at C2-C3 and C7-T1. Mild cervical facet arthrosis. Severe central canal and bilateral foraminal stenosis from C3- C4 through C6-C7. No prevertebral or paraspinal soft tissue abnormality. Atherosclerotic vascular calcification of the carotid arteries and aortic arch. Lung apices are clear. IMPRESSION: No acute fracture or subluxation of the cervical spine. LOCATION: LP at 1158 Reported and signed by: Gabby Hernandez D.O. CC: Yony Arcos MD Technologist:Nuris Ken RT(R)(CT) CTDI: DLP: Trnscb Date/Time: 10/31/2019 (1158) [id number] Orig Print D/T: S: 10/31/2019 (5450) PAGE 1 Signed Report - CT HEAD/BRAIN W/O [id number] 11:55:00 Name: KB VACA [facility] : 1935 Age/S: 83 / M [address] [facility] Unit #: [id number] Loc: [place] [address] Phys: Yony Arcos MD Acct: [id number] Dis Date: Status: PRE ER PHONE #: [phone] Exam Date: 10/31/2019 1140 FAX #: [phone] Reason: dizziness, hit head, HTN urgency EXAMS: CPT CODE: [id number] CT HEAD/BRAIN W/O CONT 99769 HISTORY: dizziness, hit head, HTN urgency TECHNIQUE: Noncontrast 2.[address] of the head. Examination acquired within 24 hours of arrival. Automated exposure control for dose reduction; DLP: 870 mGy-cm. COMPARISON: 04/12/19 FINDINGS: No acute hemorrhage. No CT evidence of acute infarct. Mild periventricular chronic microvascular ischemic changes. No intracranial mass or mass effect. Moderate parenchymal atrophy. No hydrocephalus. No extra-axial fluid collection. Atherosclerotic vascular calcification of the carotid siphons. Trace bilateral maxillary sinus mucosal thickening. Mastoid air cells and middle ear cavities are clear. Bilateral lens implants. Calvarium and skull base are intact. IMPRESSION: No acute intracranial process. LOCATION: LP at 1155 Reported and signed by: Gabby Hernandez D.O. CC: Yony Arcos MD Technologist:Nuris Ken RT(R)(CT) CTDI: DLP: Trnscb Date/Time: 10/31/2019 (1465) [id number] Orig Print D/T: S: 10/31/2019 (9692) PAGE 1 Signed Report COMPREHENSIVE METABOLIC [id number] 05:43:00* Test Item Value Reference Range Interpretation Comments SODIUM (test code = NA) 131 mmol/L 136-145 L POTASSIUM (test code = K) 4.3 mmol/L 3.5-5.1 N CHLORIDE (test code = CL) 96.0 mmol/L 98-107 L CARBON DIOXIDE (test code = CO2) 29.0 mmol/L 21-32 N ANION GAP (test code = GAP) 10.3 10-20 N GLUCOSE (test code = GLU) 100 mg/dL 74-106 N BLOOD UREA NITROGEN (test code = BUN) 24 mg/dL 7-18 H GLOMERULAR FILTRATION RATE (test code = GFR) 58 mL/min >=60 Estimated GFR by using Modified MDRD formula.Chronic kidney disease is defined as either kidney damageor GFR <60 mL/min/1.73 m2 for >3 months. CREATININE (test code = CREAT) 1.20 mg/dL 0.7-1.3 N BUN/CREATININE RATIO (test code = BUN/CREA) 20.7 10-20 H TOTAL PROTEIN (test code = PROT) 6.9 gram/dL 6.4-8.2 N ALBUMIN (test code = ALB) 3.6 g/dL 3.4-5.0 N GLOBULIN (test code = GLOB) 3.3 gram/dL 2.7-4.2 N ALBUMIN/GLOBULIN RATIO (test code = A/G) 1.1 0.75-1.50 N CALCIUM (test code = CA) 8.8 mg/dL 8.5-10.1 N BILIRUBIN TOTAL (test code = BILT) 0.60 mg/dL 0.0-1.0 N SGOT/AST (test code = AST) 15 IUnit/L 15-37 N SGPT/ALT (test code = ALT) 24 IUnit/L 12-78 N ALKALINE PHOSPHATASE TOTAL (test code = ALKP) 68 IUnit/L 45-117 N Note change in reference range due to change in reagent. COMPREHENSIVE METABOLIC [id number] 05:33:00* Test Item Value Reference Range Interpretation Comments SODIUM (test code = NA) 131 mmol/L 136-145 L POTASSIUM (test code = K) 4.3 mmol/L 3.5-5.1 N CHLORIDE (test code = CL) 96.0 mmol/L 98-107 L CARBON DIOXIDE (test code = CO2) mmol/L 21-32 ANION GAP (test code = GAP) 10-20 GLUCOSE (test code = GLU) mg/dL 74-106 BLOOD UREA NITROGEN (test code = BUN) mg/dL 7-18 GLOMERULAR FILTRATION RATE (test code = GFR) mL/min >=60 CREATININE (test code = CREAT) mg/dL 0.7-1.3 BUN/CREATININE RATIO (test code = BUN/CREA) 10-20 TOTAL PROTEIN (test code = PROT) gram/dL 6.4-8.2 ALBUMIN (test code = ALB) g/dL 3.4-5.0 GLOBULIN (test code = GLOB) gram/dL 2.7-4.2 ALBUMIN/GLOBULIN RATIO (test code = A/G) 0.75-1.50 CALCIUM (test code = CA) mg/dL 8.5-10.1 BILIRUBIN TOTAL (test code = BILT) mg/dL 0.0-1.0 SGOT/AST (test code = AST) IUnit/L 15-37 SGPT/ALT (test code = ALT) IUnit/L 12-78 ALKALINE PHOSPHATASE TOTAL (test code = ALKP) IUnit/L 45-117 CBC W/AUTO [id number] 05:19:00* Test Item Value Reference Range Interpretation Comments WHITE BLOOD CELL (test code = WBC) 6.0 K/mm3 4.5-12.5 N RED BLOOD CELL (test code = RBC) 4.92 mill/mm3 4.0-5.8 N HEMOGLOBIN (test code = HGB) 15.9 gram/dL 13.0-17.5 N HEMATOCRIT (test code = HCT) 45.5 % 42.0-52.0 N MEAN CELL VOLUME (test code = MCV) 92.5 fL 80-98 N MEAN CELL HGB (test code = MCH) 32.3 picogram 27.0-33.0 N MEAN CELL HGB CONCETRATION (test code = MCHC) 34.9 gram/dL 33.0-36. 0 N RED CELL DISTRIBUTION WIDTH (test code = RDW) 12.0 % 11.6-16. 2 N RED CELL DISTRIBUTION WIDTH SD (test code = RDW-SD) 41.3 fL 37 .0-51.0 N PLATELET COUNT (test code = PLT) 199 K/mm3 150-450 N MEAN PLATELET VOLUME (test code = MPV) 10.7 fL 6.7-11.0 N NEUTROPHIL % (test code = NT%) 61.2 % 39.0-69.0 N IMMATURE GRANULOCYTE % (test code = IG%) 0.3 % 0.0-5.0 N LYMPHOCYTE % (test code = LY%) 25.2 % 25.0-55.0 N MONOCYTE % (test code = MO%) 11.6 % 0.0-10.0 H EOSINOPHIL % (test code = EO%) 1.2 % 0.0-5.0 N BASOPHIL % (test code = BA%) 0.5 % 0.0-1.0 N NUCLEATED RBC % (test code = NRBC%) 0.0 % 0-0 N NEUTROPHIL # (test code = NT#) 3.69 K/mm3 1.8-7.7 N IMMATURE GRANULOCYTE # (test code = IG#) 0.02 x10 3/uL 0-0.03 N LYMPHOCYTE # (test code = LY#) 1.52 K/mm3 1.0-5.0 N MONOCYTE # (test code = MO#) 0.70 K/mm3 0-0.8 N EOSINOPHIL # (test code = EO#) 0.07 K/mm3 0.0-0.5 N BASOPHIL # (test code = BA#) 0.03 K/mm3 0.0-0.2 N NUCLEATED RBC # (test code = NRBC#) 0.00 K/mm3 0.0-0.1 N CBC W/AUTO [id number] 05:15:00* Test Item Value Reference Range Interpretation Comments WHITE BLOOD CELL (test code = WBC) K/mm3 4.5-12.5 RED BLOOD CELL (test code = RBC) mill/mm3 4.0-5.8 HEMOGLOBIN (test code = HGB) 15.9 gram/dL 13.0-17.5 N HEMATOCRIT (test code = HCT) 45.5 % 42.0-52.0 N MEAN CELL VOLUME (test code = MCV) fL 80-98 MEAN CELL HGB (test code = MCH) picogram 27.0-33.0 MEAN CELL HGB CONCETRATION (test code = MCHC) gram/dL 33.0-36. 0 RED CELL DISTRIBUTION WIDTH (test code = RDW) % 11.6-16. 2 RED CELL DISTRIBUTION WIDTH SD (test code = RDW-SD) fL 37 .0-51.0 PLATELET COUNT (test code = PLT) K/mm3 150-450 MEAN PLATELET VOLUME (test code = MPV) fL 6.7-11.0 NEUTROPHIL % (test code = NT%) % 39.0-69.0 IMMATURE GRANULOCYTE % (test code = IG%) % 0.0-5.0 LYMPHOCYTE % (test code = LY%) % 25.0-55.0 MONOCYTE % (test code = MO%) % 0.0-10.0 EOSINOPHIL % (test code = EO%) % 0.0-5.0 BASOPHIL % (test code = BA%) % 0.0-1.0 NEUTROPHIL # (test code = NT#) K/mm3 1.8-7.7 LYMPHOCYTE # (test code = LY#) K/mm3 1.0-5.0 MONOCYTE # (test code = MO#) K/mm3 0-0.8 EOSINOPHIL # (test code = EO#) K/mm3 0.0-0.5 BASOPHIL # (test code = BA#) K/mm3 0.0-0.2 CBC W/O [id number] 05:15:00* Test Item Value Reference Range Interpretation Comments WHITE BLOOD CELL (test code = WBC) 6.4 K/mm3 4.5-12.5 N RED BLOOD CELL (test code = RBC) 4.70 mill/mm3 4.0-5.8 N HEMOGLOBIN (test code = HGB) 15.1 gram/dL 13.0-17.5 N HEMATOCRIT (test code = HCT) 43.8 % 42.0-52.0 N MEAN CELL VOLUME (test code = MCV) 93.2 fL 80-98 N MEAN CELL HGB (test code = MCH) 32.1 picogram 27.0-33.0 N MEAN CELL HGB CONCETRATION (test code = MCHC) 34.5 gram/dL 33.0-36. 0 N RED CELL DISTRIBUTION WIDTH (test code = RDW) 12.0 % 11.6-16. 2 N PLATELET COUNT (test code = PLT) 179 K/mm3 150-450 N MEAN PLATELET VOLUME (test code = MPV) 10.9 fL 6.7-11.0 N [id number] 20:47:00* Test Item Value Reference Range Interpretation Comments AMMONIA (test code = AMM) 25 umol/L 11-32 N CBC W/O [id number] 05:00:00* Test Item Value Reference Range Interpretation Comments WHITE BLOOD CELL (test code = WBC) 7.8 K/mm3 4.5-12.5 N RED BLOOD CELL (test code = RBC) 4.69 mill/mm3 4.0-5.8 N HEMOGLOBIN (test code = HGB) 15.3 gram/dL 13.0-17.5 N HEMATOCRIT (test code = HCT) 44.2 % 42.0-52.0 N MEAN CELL VOLUME (test code = MCV) 94.2 fL 80-98 N MEAN CELL HGB (test code = MCH) 32.6 picogram 27.0-33.0 N MEAN CELL HGB CONCETRATION (test code = MCHC) 34.6 gram/dL 33.0-36. 0 N RED CELL DISTRIBUTION WIDTH (test code = RDW) 12.1 % 11.6-16. 2 N PLATELET COUNT (test code = PLT) 191 K/mm3 150-450 N MEAN PLATELET VOLUME (test code = MPV) 10.9 fL 6.7-11.0 N CBC W/O [id number] 04:44:00* Test Item Value Reference Range Interpretation Comments WHITE BLOOD CELL (test code = WBC) K/mm3 4.5-12.5 RED BLOOD CELL (test code = RBC) mill/mm3 4.0-5.8 HEMOGLOBIN (test code = HGB) 15.3 gram/dL 13.0-17.5 N HEMATOCRIT (test code = HCT) 44.2 % 42.0-52.0 N MEAN CELL VOLUME (test code = MCV) fL 80-98 MEAN CELL HGB (test code = MCH) picogram 27.0-33.0 MEAN CELL HGB CONCETRATION (test code = MCHC) gram/dL 33.0-36. 0 RED CELL DISTRIBUTION WIDTH (test code = RDW) % 11.6-16. 2 PLATELET COUNT (test code = PLT) K/mm3 150-450 MEAN PLATELET VOLUME (test code = MPV) fL 6.7-11.0 COMPREHENSIVE METABOLIC [id number] 06:49:00* Test Item Value Reference Range Interpretation Comments SODIUM (test code = NA) 138 mmol/L 136-145 N POTASSIUM (test code = K) 4.0 mmol/L 3.5-5.1 N CHLORIDE (test code = CL) 105.0 mmol/L 98-107 N CARBON DIOXIDE (test code = CO2) 24.0 mmol/L 21-32 N ANION GAP (test code = GAP) 13.0 10-20 N GLUCOSE (test code = GLU) 88 mg/dL 74-106 N BLOOD UREA NITROGEN (test code = BUN) 16 mg/dL 7-18 N GLOMERULAR FILTRATION RATE (test code = GFR) > 60 mL/min >=60 Estimated GFR by using Modified MDRD formula.Chronic kidney disease is defined as either kidney damageor GFR <60 mL/min/1.73 m2 for >3 months. CREATININE (test code = CREAT) 0.90 mg/dL 0.7-1.3 N BUN/CREATININE RATIO (test code = BUN/CREA) 18.4 10-20 N TOTAL PROTEIN (test code = PROT) 6.6 gram/dL 6.4-8.2 N ALBUMIN (test code = ALB) 3.4 g/dL 3.4-5.0 N GLOBULIN (test code = GLOB) 3.2 gram/dL 2.7-4.2 N ALBUMIN/GLOBULIN RATIO (test code = A/G) 1.1 0.75-1.50 N CALCIUM (test code = CA) 8.6 mg/dL 8.5-10.1 N BILIRUBIN TOTAL (test code = BILT) 0.60 mg/dL 0.0-1.0 N SGOT/AST (test code = AST) 22 IUnit/L 15-37 N SGPT/ALT (test code = ALT) 26 IUnit/L 12-78 N ALKALINE PHOSPHATASE TOTAL (test code = ALKP) 64 IUnit/L 45-117 N Note change in reference range due to change in reagent. [id number] 06:49:00* Test Item Value Reference Range Interpretation Comments PHOSPHORUS (test code = PHOS) 3.0 mg/dL 2.5-4.9 N [id number] 06:49:00* Test Item Value Reference Range Interpretation Comments MAGNESIUM (test code = MAG) 2.5 mg/dL 1.8-2.4 H CALCIUM [id number] 06:49:00* Test Item Value Reference Range Interpretation Comments CALCIUM IONIZED (test code = KULWINDER) 1.23 mmol/L 1.12-1.32 N COMPREHENSIVE METABOLIC [id number] 06:38:00* Test Item Value Reference Range Interpretation Comments SODIUM (test code = NA) 138 mmol/L 136-145 N POTASSIUM (test code = K) 4.0 mmol/L 3.5-5.1 N CHLORIDE (test code = CL) 105.0 mmol/L 98-107 N CARBON DIOXIDE (test code = CO2) mmol/L 21-32 ANION GAP (test code = GAP) 10-20 GLUCOSE (test code = GLU) mg/dL 74-106 BLOOD UREA NITROGEN (test code = BUN) mg/dL 7-18 GLOMERULAR FILTRATION RATE (test code = GFR) mL/min >=60 CREATININE (test code = CREAT) mg/dL 0.7-1.3 BUN/CREATININE RATIO (test code = BUN/CREA) 10-20 TOTAL PROTEIN (test code = PROT) gram/dL 6.4-8.2 ALBUMIN (test code = ALB) g/dL 3.4-5.0 GLOBULIN (test code = GLOB) gram/dL 2.7-4.2 ALBUMIN/GLOBULIN RATIO (test code = A/G) 0.75-1.50 CALCIUM (test code = CA) mg/dL 8.5-10.1 BILIRUBIN TOTAL (test code = BILT) mg/dL 0.0-1.0 SGOT/AST (test code = AST) IUnit/L 15-37 SGPT/ALT (test code = ALT) IUnit/L 12-78 ALKALINE PHOSPHATASE TOTAL (test code = ALKP) IUnit/L 45-117 [id number] 06:38:00* Test Item Value Reference Range Interpretation Comments PHOSPHORUS (test code = PHOS) mg/dL 2.5-4.9 [id number] 06:38:00* Test Item Value Reference Range Interpretation Comments MAGNESIUM (test code = MAG) mg/dL 1.8-2.4 CALCIUM [id number] 06:38:00* Test Item Value Reference Range Interpretation Comments CALCIUM IONIZED (test code = KULWINDER) 1.23 mmol/L 1.12-1.32 N COMPREHENSIVE METABOLIC [id number] 06:33:00* Test Item Value Reference Range Interpretation Comments SODIUM (test code = NA) mmol/L 136-145 POTASSIUM (test code = K) mmol/L 3.5-5.1 CHLORIDE (test code = CL) mmol/L 98-107 CARBON DIOXIDE (test code = CO2) mmol/L 21-32 ANION GAP (test code = GAP) 10-20 GLUCOSE (test code = GLU) mg/dL 74-106 BLOOD UREA NITROGEN (test code = BUN) mg/dL 7-18 GLOMERULAR FILTRATION RATE (test code = GFR) mL/min >=60 CREATININE (test code = CREAT) mg/dL 0.7-1.3 BUN/CREATININE RATIO (test code = BUN/CREA) 10-20 TOTAL PROTEIN (test code = PROT) gram/dL 6.4-8.2 ALBUMIN (test code = ALB) g/dL 3.4-5.0 GLOBULIN (test code = GLOB) gram/dL 2.7-4.2 ALBUMIN/GLOBULIN RATIO (test code = A/G) 0.75-1.50 CALCIUM (test code = CA) mg/dL 8.5-10.1 BILIRUBIN TOTAL (test code = BILT) mg/dL 0.0-1.0 SGOT/AST (test code = AST) IUnit/L 15-37 SGPT/ALT (test code = ALT) IUnit/L 12-78 ALKALINE PHOSPHATASE TOTAL (test code = ALKP) IUnit/L 45-117 [id number] 06:33:00* Test Item Value Reference Range Interpretation Comments PHOSPHORUS (test code = PHOS) mg/dL 2.5-4.9 [id number] 06:33:00* Test Item Value Reference Range Interpretation Comments MAGNESIUM (test code = MAG) mg/dL 1.8-2.4 CALCIUM [id number] 06:33:00* Test Item Value Reference Range Interpretation Comments CALCIUM IONIZED (test code = KULWINDER) 1.23 mmol/L 1.12-1.32 N CBC W/AUTO [id number] 05:51:00* Test Item Value Reference Range Interpretation Comments WHITE BLOOD CELL (test code = WBC) 7.7 K/mm3 4.5-12.5 N RED BLOOD CELL (test code = RBC) 4.37 mill/mm3 4.0-5.8 N HEMOGLOBIN (test code = HGB) 14.2 gram/dL 13.0-17.5 N HEMATOCRIT (test code = HCT) 41.9 % 42.0-52.0 L MEAN CELL VOLUME (test code = MCV) 95.9 fL 80-98 N MEAN CELL HGB (test code = MCH) 32.5 picogram 27.0-33.0 N MEAN CELL HGB CONCETRATION (test code = MCHC) 33.9 gram/dL 33.0-36. 0 N RED CELL DISTRIBUTION WIDTH (test code = RDW) 12.3 % 11.6-16. 2 N RED CELL DISTRIBUTION WIDTH SD (test code = RDW-SD) 43.5 fL 37 .0-51.0 N PLATELET COUNT (test code = PLT) 188 K/mm3 150-450 N MEAN PLATELET VOLUME (test code = MPV) 10.9 fL 6.7-11.0 N NEUTROPHIL % (test code = NT%) 63.4 % 39.0-69.0 N IMMATURE GRANULOCYTE % (test code = IG%) 0.4 % 0.0-5.0 N LYMPHOCYTE % (test code = LY%) 23.9 % 25.0-55.0 L MONOCYTE % (test code = MO%) 10.8 % 0.0-10.0 H EOSINOPHIL % (test code = EO%) 0.8 % 0.0-5.0 N BASOPHIL % (test code = BA%) 0.7 % 0.0-1.0 N NUCLEATED RBC % (test code = NRBC%) 0.0 % 0-0 N NEUTROPHIL # (test code = NT#) 4.88 K/mm3 1.8-7.7 N IMMATURE GRANULOCYTE # (test code = IG#) 0.03 x10 3/uL 0-0.03 N LYMPHOCYTE # (test code = LY#) 1.84 K/mm3 1.0-5.0 N MONOCYTE # (test code = MO#) 0.83 K/mm3 0-0.8 H EOSINOPHIL # (test code = EO#) 0.06 K/mm3 0.0-0.5 N BASOPHIL # (test code = BA#) 0.05 K/mm3 0.0-0.2 N NUCLEATED RBC # (test code = NRBC#) 0.00 K/mm3 0.0-0.1 N MANUAL DIFF REQUIRED (test code = MDIFF) NO BASIC METABOLIC [id number] 09:15:00* Test Item Value Reference Range Interpretation Comments SODIUM (test code = NA) 139 mmol/L 136-145 N POTASSIUM (test code = K) 4.4 mmol/L 3.5-5.1 N CHLORIDE (test code = CL) 104.0 mmol/L 98-107 N CARBON DIOXIDE (test code = CO2) 26.0 mmol/L 21-32 N ANION GAP (test code = GAP) 13.4 10-20 N GLUCOSE (test code = GLU) 96 mg/dL 74-106 N BLOOD UREA NITROGEN (test code = BUN) 14 mg/dL 7-18 N GLOMERULAR FILTRATION RATE (test code = GFR) > 60 mL/min >=60 Estimated GFR by using Modified MDRD formula.Chronic kidney disease is defined as either kidney damageor GFR <60 mL/min/1.73 m2 for >3 months. CREATININE (test code = CREAT) 1.00 mg/dL 0.7-1.3 N BUN/CREATININE RATIO (test code = BUN/CREA) 14.0 10-20 N CALCIUM (test code = CA) 8.7 mg/dL 8.5-10.1 N COMPREHENSIVE METABOLIC [id number] 09:15:00* Test Item Value Reference Range Interpretation Comments TOTAL PROTEIN (test code = PROT) 7.3 gram/dL 6.4-8.2 N ALBUMIN (test code = ALB) 3.7 g/dL 3.4-5.0 N GLOBULIN (test code = GLOB) 3.6 gram/dL 2.7-4.2 N ALBUMIN/GLOBULIN RATIO (test code = A/G) 1.0 0.75-1.50 N BILIRUBIN TOTAL (test code = BILT) 0.80 mg/dL 0.0-1.0 N SGOT/AST (test code = AST) 29 IUnit/L 15-37 N SGPT/ALT (test code = ALT) 26 IUnit/L 12-78 N ALKALINE PHOSPHATASE TOTAL (test code = ALKP) 70 IUnit/L 45-117 N Note change in reference range due to change in reagent. [id number] 09:15:00* Test Item Value Reference Range Interpretation Comments PHOSPHORUS (test code = PHOS) 2.8 mg/dL 2.5-4.9 N [id number] 09:15:00* Test Item Value Reference Range Interpretation Comments MAGNESIUM (test code = MAG) 2.9 mg/dL 1.8-2.4 H CALCIUM [id number] 09:15:00* Test Item Value Reference Range Interpretation Comments CALCIUM IONIZED (test code = KULWINDER) 1.23 mmol/L 1.12-1.32 N BASIC METABOLIC [id number] 06:34:00* Test Item Value Reference Range Interpretation Comments SODIUM (test code = NA) mmol/L 136-145 POTASSIUM (test code = K) mmol/L 3.5-5.1 CHLORIDE (test code = CL) mmol/L 98-107 CARBON DIOXIDE (test code = CO2) mmol/L 21-32 ANION GAP (test code = GAP) 10-20 GLUCOSE (test code = GLU) mg/dL 74-106 BLOOD UREA NITROGEN (test code = BUN) mg/dL 7-18 GLOMERULAR FILTRATION RATE (test code = GFR) mL/min >=60 CREATININE (test code = CREAT) mg/dL 0.7-1.3 BUN/CREATININE RATIO (test code = BUN/CREA) 10-20 CALCIUM (test code = CA) mg/dL 8.5-10.1 COMPREHENSIVE METABOLIC [id number] 06:34:00* Test Item Value Reference Range Interpretation Comments TOTAL PROTEIN (test code = PROT) gram/dL 6.4-8.2 ALBUMIN (test code = ALB) g/dL 3.4-5.0 GLOBULIN (test code = GLOB) gram/dL 2.7-4.2 ALBUMIN/GLOBULIN RATIO (test code = A/G) 0.75-1.50 BILIRUBIN TOTAL (test code = BILT) mg/dL 0.0-1.0 SGOT/AST (test code = AST) IUnit/L 15-37 SGPT/ALT (test code = ALT) IUnit/L 12-78 ALKALINE PHOSPHATASE TOTAL (test code = ALKP) IUnit/L 45-117 [id number] 06:34:00* Test Item Value Reference Range Interpretation Comments PHOSPHORUS (test code = PHOS) mg/dL 2.5-4.9 [id number] 06:34:00* Test Item Value Reference Range Interpretation Comments MAGNESIUM (test code = MAG) mg/dL 1.8-2.4 CALCIUM [id number] 06:34:00* Test Item Value Reference Range Interpretation Comments CALCIUM IONIZED (test code = KULWINDER) 1.23 mmol/L 1.12-1.32 N CBC W/O [id number] 06:02:00* Test Item Value Reference Range Interpretation Comments WHITE BLOOD CELL (test code = WBC) 7.7 K/mm3 4.5-12.5 N RED BLOOD CELL (test code = RBC) 4.46 mill/mm3 4.0-5.8 N HEMOGLOBIN (test code = HGB) 14.7 gram/dL 13.0-17.5 N HEMATOCRIT (test code = HCT) 43.0 % 42.0-52.0 N MEAN CELL VOLUME (test code = MCV) 96.4 fL 80-98 N MEAN CELL HGB (test code = MCH) 33.0 picogram 27.0-33.0 N MEAN CELL HGB CONCETRATION (test code = MCHC) 34.2 gram/dL 33.0-36. 0 N RED CELL DISTRIBUTION WIDTH (test code = RDW) 12.6 % 11.6-16. 2 N PLATELET COUNT (test code = PLT) 191 K/mm3 150-450 N MEAN PLATELET VOLUME (test code = MPV) 10.5 fL 6.7-11.0 N CBC W/O [id number] 06:01:00* Test Item Value Reference Range Interpretation Comments WHITE BLOOD CELL (test code = WBC) K/mm3 4.5-12.5 RED BLOOD CELL (test code = RBC) mill/mm3 4.0-5.8 HEMOGLOBIN (test code = HGB) 14.7 gram/dL 13.0-17.5 N HEMATOCRIT (test code = HCT) 43.0 % 42.0-52.0 N MEAN CELL VOLUME (test code = MCV) fL 80-98 MEAN CELL HGB (test code = MCH) picogram 27.0-33.0 MEAN CELL HGB CONCETRATION (test code = MCHC) gram/dL 33.0-36. 0 RED CELL DISTRIBUTION WIDTH (test code = RDW) % 11.6-16. 2 PLATELET COUNT (test code = PLT) K/mm3 150-450 MEAN PLATELET VOLUME (test code = MPV) fL 6.7-11.0 - CTA [id number] 21:31:00 Name: KB VACA [facility] : 1935 Age/S: 83 / M [address] [facility] Unit #: [id number] Loc: [place] [address] Phys: Frances Batres MD Acct: [id number] Dis Date: Status: ADM IN PHONE #: [phone] Exam Date: 04/13/2019 2334 FAX #: [phone] Reason: r/o cva EXAMS: CPT CODE: [id number] CTA NECK 90033 REASON FOR EXAM: r/o cva EXAM ORDER DATE: 04/13/2019 9:32 AM Ordering Carolyn: Frances Batres MD PROCEDURE: - CTA NECK COMPARISON: FINDINGS: Axial images of the neck were obtained with IV contrast. Dose reduction techniques were applied. Reconstructed 3-D angiogram of the cervical vessels as well as intraluminal vessel analysis were also provided for interpretation The vertebral arteries are unremarkable. Small calcified plaques noted within the proximal ICAs bilaterally. On the right, the stenosis measures approximately 40%. On the left is stenosis measuring approximately 30% IMPRESSION: Bilateral calcified proximal internal carotid plaques measuring 40% on the right and 30% of the left at 3682 Reported and signed by: Owen Harden M.D. CC: Keyana Brady MD; Frances Batres MD Technologist:Nuris Ken RT(R)(CT); . CTDI: DLP: Trnscb Date/Time: 04/13/2019 (2130) Daniel.VTL Orig Print D/T: S: 04/13/2019 (2134) PAGE 1 Signed Report - CTA HEAD 2019-04-13 21:16:00 [facility] 1935 [facility]S: 83 / M [address] [facility] Unit #: [id number] Loc: [place] [address] Phys: Frances Batres MD Acct: [id number] Dis Date: Status: ADM IN PHONE #: [phone] Exam Date: 04/13/2019 1654 FAX #: [phone] Reason: r/o cva EXAMS: CPT CODE: [id number] CTA HEAD 37517 REASON FOR EXAM: r/o cva EXAM ORDER DATE: 04/13/2019 9:32 AM Ordering Carolyn: Frances Batres MD PROCEDURE: - CTA HEAD COMPARISON: FINDINGS: Axial images of the head were obtained with IV contrast. Dose reduction techniques were applied. Reconstructed 3-D angiogram of the cerebral vessels as well as intraluminal vessel analysis were also provided for interpretation The anterior, middle, and posterior cerebral arteries are unremarkable. The visualized segment of the ICAs are unremarkable. The basilar artery is within normal limits IMPRESSION: Unremarkable cerebral angiogram at 2116 Reported and signed by: Owen Harden M.D. CC: Keyana Brady MD; Frances Batres MD Technologist:Nuris Ken RT(R)(CT); . CTDI: DLP: Trnscb Date/Time: 04/13/2019 (2115) Patrick Orig Print D/T: S: 04/13/2019 (2118) PAGE 1 Signed Report - MRI C-SPINE W/O [id number] 18:24:00 FAX: Keyana Brady MD [phone] [place]: B St: ADM FAX: Karla Malhotra [phone] Name: KB VACA [facility] : 1935 Age/S: 83/M [address] [facility] Unit #: [id number] Loc: [place] [place] [address] Phys: Karla Jacobson MD Acct: [id number] Dis Date: Status: ADM IN PHONE #: [phone] Exam Date: 04/13/2019 1749 FAX #: [phone] Reason: Cervical spinal stenosis EXAMS: CPT CODE: [id number] MRI C-SPINE W/O CONT 39579 REASON FOR EXAM: Cervical spinal stenosis Exam Order Date: 04/13/2019 4:21 PM Attending M.D.: Karla Jacobson MD Comparison: Procedure: - MRI C-SPINE W/O CONT FINDINGS: Sagittal and axial images of the cervical were obtained in in T1, T2, and proton density with fat saturation. No IV gadolinium was given. The sagittal images show within normal alignment of the cervical. Large broad-based disc herniation with severe narrowing of the central canal at C4-5. Moderate flattening of the cord consistent with co rd compression. Additional moderate broad-based disc bulge is also seen at C3-4 C5-6 and C6-7. No evidence of diskitis or osteomyelitis. The cord is unremarkable without evidence of intramedullary mass. IMPRESSION: C3-4, C6-7: Moderate broad-based disc bulge with mild central canal stenosis. No evidence of cord compression or neural fo raminal stenosis C4-5: Severe broad-based disc bulge with severe central canal stenosis and flattening the cord consistent with cord com pression. Minimal narrowing of bilateral neural foramen. The central c anal stenosis and cord compression are most severe at C4-5. C5-6 : Severe broad-based disc bulge with severe central canal stenosis and f lattening of the cord consistent with cord compression. No evidence of foraminal stenosis. Dr. Jacobson was informed of the finding s by telephone at 6:24 PM FOR INTERNAL CARLOS NG PURPOSES ONLY RESULT CODE: CVR PAGE 1 Signed Report (CONTINUED) FAX: Keyana Brady MD [phone] [place]: B St: ADM FAX: Karla Malhotra [phone] Name: KB VACA [facility] : 1935 Age/S: 83/M [address] [facility] Unit #: [id number] Loc: V.[address] [address] Phys: Karla Jacobson MD Acct: [id number] Dis Date: Status: ADM IN PHONE #: [phone] Exam Date: 04/13/2019 174 FAX #: [phone] Reason: Cervical spinal stenosis EXAMS: CPT CODE: [id number] MRI C-SPINE W/O CONT 80471 <Continued> at 1824 Reported and signed by: Owen Harden M.D. CC: Keyana Brady MD; Karla Jacobson MD Technologist: ERLINDA ROBERTSRT - [facility] Date/Time/By: 04/13/2019 (1823) : By: Patrick Orig Print D/T: S: 04/13/2019 (1827) PAGE 2 Signed Report - MRI BRAIN W/O [id number] 18:15:00 FAX: Keyana Brady MD [phone] [place]: B St: ADM FAX: Karla Malhotra [phone] Name: KB VACA [facility] : 1935 Age/S: 83/M [address] [facility] Unit #: [id number] Loc: [place] [place] [address] Phys: Karla Jacobson MD Acct: [id number] Dis Date: Status: ADM IN PHONE #: [phone] Exam Date: 04/13/2019 1744 FAX #: [phone] Reason: AMS EXAMS: CPT CODE: [id number] MRI BRAIN W/O CONTRAST 71256 REASON FOR EXAM: AMS Exam Order Date: 04/13/2019 4:21 PM Attending Carolyn: Karla Jacobson MD Procedure: - MRI BRAIN W/O CONTRAST Comparison: FINDINGS: Axial, sagittal, and coronal images of the head were obtained using T1, T2 weighted, inversion recovery, and gradient echo sequences. The diffusion images are within normal limits without abnormal signal intensity to suggest acute infarct. No IV gadolinium was given. The sagittal images show normal pituitary, cerebellum, and brain stem. No evidence of suprasellar mass. The axial T2, inversion recovery, and gradient echo images show no evidence of intra or extra axial mass. The ventricles, cisterns, and sulci are minimally prominent. No evidence of hemorrhage. Nonspecific punctate white matter disease in the periventricular region. The cerebellar pontine angle area is within normal limits. There is no evidence of mass noted. The axial T1 images show no evid ence of mass. No evidence of old infarct. Th e coronal images show normal optic chiasm. IMPRESSION: Nonspecif ic deep white matter disease. Age-appropriate generalized atrophy. No acute findings a t 3865 Reported and signed by: Owen Harden M.D. PAG E 1 Signed Report (CONTINUED) FAX: Keyana Brady MD [phone] [place]: St: [facility] FAX: Karla Love [phone] Name: KB [facility] : 1935 Age/S: 83/M [address] [facility] Unit #: [id number] Loc: [place] [place], [place] [address] Phys: Karla Jacobson MD Acct: [id number] Dis Date: Status: ADM IN PHONE #: [phone] Exam Date: 04/13/2019 174 FAX #: [phone] Reason: AMS EXAMS: CPT CODE: [id number] MRI BRAIN W/O CONTRAST 98347 < Continued> CC: Keyana Brady MD; Karla Jacobson MD Technologist: RT BOGDAN - MRI Trnarrd Date/Time/By: 04/13/2019 (1814) : By: CathyVTL Orig Print D/T: S: 04/13/2019 (1818) PAGE 2 Signed Report CBC W/AUTO DIFF 2019-04-13 06:43:00* Test Item Value Reference Range Interpretation Comments WHITE BLOOD CELL (test code = WBC) 8.4 K/mm3 4.5-12.5 N RED BLOOD CELL (test code = RBC) 4.76 mill/mm3 4.0-5.8 N HEMOGLOBIN (test code = HGB) 15.2 gram/dL 13.0-17.5 N HEMATOCRIT (test code = HCT) 44.6 % 42.0-52.0 N MEAN CELL VOLUME (test code = MCV) 93.7 fL 80-98 N MEAN CELL HGB (test code = MCH) 31.9 picogram 27.0-33.0 N MEAN CELL HGB CONCETRATION (test code = MCHC) 34.1 gram/dL 33.0-36. 0 N RED CELL DISTRIBUTION WIDTH (test code = RDW) 12.2 % 11.6-16. 2 N RED CELL DISTRIBUTION WIDTH SD (test code = RDW-SD) 42.5 fL 37 .0-51.0 N PLATELET COUNT (test code = PLT) 192 K/mm3 150-450 N MEAN PLATELET VOLUME (test code = MPV) 10.6 fL 6.7-11.0 N NEUTROPHIL % (test code = NT%) 77.3 % 39.0-69.0 H IMMATURE GRANULOCYTE % (test code = IG%) 0.2 % 0.0-5.0 N LYMPHOCYTE % (test code = LY%) 13.4 % 25.0-55.0 L MONOCYTE % (test code = MO%) 8.5 % 0.0-10.0 N EOSINOPHIL % (test code = EO%) 0.1 % 0.0-5.0 N BASOPHIL % (test code = BA%) 0.5 % 0.0-1.0 N NUCLEATED RBC % (test code = NRBC%) 0.0 % 0-0 N NEUTROPHIL # (test code = NT#) 6.52 K/mm3 1.8-7.7 N IMMATURE GRANULOCYTE # (test code = IG#) 0.02 x10 3/uL 0-0.03 N LYMPHOCYTE # (test code = LY#) 1.13 K/mm3 1.0-5.0 N MONOCYTE # (test code = MO#) 0.72 K/mm3 0-0.8 N EOSINOPHIL # (test code = EO#) 0.01 K/mm3 0.0-0.5 N BASOPHIL # (test code = BA#) 0.04 K/mm3 0.0-0.2 N NUCLEATED RBC # (test code = NRBC#) 0.00 K/mm3 0.0-0.1 N MANUAL DIFF REQUIRED (test code = MDIFF) NO BASIC METABOLIC [id number] 02:29:00* Test Item Value Reference Range Interpretation Comments SODIUM (test code = NA) 142 mmol/L 136-145 RESU LT VERIFIED BY REPEAT ANALYSIS POTASSIUM (test code = K) 3.4 mmol/L 3.5-5.1 L CHLORIDE (test code = CL) 106.0 mmol/L 98-107 N CARBON DIOXIDE (test code = CO2) 25.0 mmol/L 21-32 N ANION GAP (test code = GAP) 14.4 10-20 N GLUCOSE (test code = GLU) 100 mg/dL 74-106 N BLOOD UREA NITROGEN (test code = BUN) 16 mg/dL 7-18 N GLOMERULAR FILTRATION RATE (test code = GFR) > 60 mL/min >=60 Estimated GFR by using Modified MDRD formula.Chronic kidney disease is defined as either kidney damageor GFR <60 mL/min/1.73 m2 for >3 months. CREATININE (test code = CREAT) 0.90 mg/dL 0.7-1.3 N BUN/CREATININE RATIO (test code = BUN/CREA) 17.6 10-20 N CALCIUM (test code = CA) 8.6 mg/dL 8.5-10.1 N COMPREHENSIVE METABOLIC [id number] 02:29:00* Test Item Value Reference Range Interpretation Comments TOTAL PROTEIN (test code = PROT) 7.5 gram/dL 6.4-8.2 N ALBUMIN (test code = ALB) 3.9 g/dL 3.4-5.0 N GLOBULIN (test code = GLOB) 3.6 gram/dL 2.7-4.2 N ALBUMIN/GLOBULIN RATIO (test code = A/G) 1.1 0.75-1.50 N BILIRUBIN TOTAL (test code = BILT) 0.50 mg/dL 0.0-1.0 N SGOT/AST (test code = AST) 18 IUnit/L 15-37 N SGPT/ALT (test code = ALT) 25 IUnit/L 12-78 N ALKALINE PHOSPHATASE TOTAL (test code = ALKP) 71 IUnit/L 45-117 N Note change in reference range due to change in reagent. [id number] 02:29:00* Test Item Value Reference Range Interpretation Comments PHOSPHORUS (test code = PHOS) 2.7 mg/dL 2.5-4.9 N [id number] 02:29:00* Test Item Value Reference Range Interpretation Comments MAGNESIUM (test code = MAG) 2.5 mg/dL 1.8-2.4 H CALCIUM [id number] 02:29:00* Test Item Value Reference Range Interpretation Comments CALCIUM IONIZED (test code = KULWINDER) 1.24 mmol/L 1.12-1.32 N [id number] 02:15:00* Test Item Value Reference Range Interpretation Comments TROPONIN-I (test code = TROPI) 0.016 ng/mL 0-0.045 N COMMENTS TO TUBE BENDER: COLLECT 3 HOURS AFTER PREVIOUS SAMPLEBASIC METABOLIC [id number] 02:12:00* Test Item Value Reference Range Interpretation Comments SODIUM (test code = NA) mmol/L 136-145 POTASSIUM (test code = K) mmol/L 3.5-5.1 CHLORIDE (test code = CL) mmol/L 98-107 CARBON DIOXIDE (test code = CO2) mmol/L 21-32 ANION GAP (test code = GAP) 10-20 GLUCOSE (test code = GLU) mg/dL 74-106 BLOOD UREA NITROGEN (test code = BUN) mg/dL 7-18 GLOMERULAR FILTRATION RATE (test code = GFR) mL/min >=60 CREATININE (test code = CREAT) mg/dL 0.7-1.3 BUN/CREATININE RATIO (test code = BUN/CREA) 10-20 CALCIUM (test code = CA) mg/dL 8.5-10.1 COMPREHENSIVE METABOLIC [id number] 02:12:00* Test Item Value Reference Range Interpretation Comments TOTAL PROTEIN (test code = PROT) gram/dL 6.4-8.2 ALBUMIN (test code = ALB) g/dL 3.4-5.0 GLOBULIN (test code = GLOB) gram/dL 2.7-4.2 ALBUMIN/GLOBULIN RATIO (test code = A/G) 0.75-1.50 BILIRUBIN TOTAL (test code = BILT) mg/dL 0.0-1.0 SGOT/AST (test code = AST) IUnit/L 15-37 SGPT/ALT (test code = ALT) IUnit/L 12-78 ALKALINE PHOSPHATASE TOTAL (test code = ALKP) IUnit/L 45-117 [id number] 02:12:00* Test Item Value Reference Range Interpretation Comments PHOSPHORUS (test code = PHOS) mg/dL 2.5-4.9 [id number] 02:12:00* Test Item Value Reference Range Interpretation Comments MAGNESIUM (test code = MAG) mg/dL 1.8-2.4 CALCIUM [id number] 02:12:00* Test Item Value Reference Range Interpretation Comments CALCIUM IONIZED (test code = KULWINDER) 1.24 mmol/L 1.12-1.32 N [id number] 23:36:00* Test Item Value Reference Range Interpretation Comments TROPONIN-I (test code = TROPI) <0.015 ng/mL 0-0.045 N CHILANGO HAS LABEL V.LAB. 04/12/19 2206COMMENTS TO TUBE BENDER: COLLECT 3 HOURS AFTER PREVIOUS SAMPLEURINALYSIS [id number] 16:49:00* Test Item Value Reference Range Interpretation Comments UA COLOR (test code = COLU) LIGHT YELLOW YELLOW UA APPEARANCE (test code = APPU) CLEAR CLEAR UA GLUCOSE DIPSTICK (test code = DGLUU) NEGATIVE mg/dL NEGATIVE UA BILIRUBIN DIPSTICK (test code = BILU) NEGATIVE NEGATIVE UA KETONE DIPSTICK (test code = KETU) TRACE mg/dL NEGATIVE UA SPECIFIC GRAVITY (test code = SGU) 1.015 1.001-1.035 UA BLOOD DIPSTICK (test code = LYLA) NEGATIVE NEGATIVE UA PH DIPSTICK (test code = KELSEY) 7.0 5.0-8.0 UA PROTEIN DIPSTICK (test code = PROU) NEGATIVE mg/dL Neg-15 UA UROBILINIOGEN DIPSTICK (test code = URO) 0.2 mg/dL 0.0-0.2 UA NITRITE DIPSTICK (test code = SUJATHA) NEGATIVE NEGATIVE UA LEUKOCYTE ESTERASE W REFLEX (test code = LEUUR) NEGATIVE NEG ATIVE UA WBC (test code = WBCU) NONE SEEN per HPF 0-5 UA RBC (test code = RBCU) 3-5 per HPF 0-5 UA EPITHELIAL CELLS (test code = EPIU) None seen per HPF Few UA BACTERIA (test code = BACU) TRACE per HPF NONE Urine Source? CatheterURINALYSIS [id number] 16:18:00* Test Item Value Reference Range Interpretation Comments UA COLOR (test code = COLU) LIGHT YELLOW YELLOW UA APPEARANCE (test code = APPU) CLEAR CLEAR UA GLUCOSE DIPSTICK (test code = DGLUU) NEGATIVE mg/dL NEGATIVE UA BILIRUBIN DIPSTICK (test code = BILU) NEGATIVE NEGATIVE UA KETONE DIPSTICK (test code = KETU) TRACE mg/dL NEGATIVE UA SPECIFIC GRAVITY (test code = SGU) 1.015 1.001-1.035 UA BLOOD DIPSTICK (test code = LYLA) NEGATIVE NEGATIVE UA PH DIPSTICK (test code = KELSEY) 7.0 5.0-8.0 UA PROTEIN DIPSTICK (test code = PROU) NEGATIVE mg/dL Neg-15 UA UROBILINIOGEN DIPSTICK (test code = URO) 0.2 mg/dL 0.0-0.2 UA NITRITE DIPSTICK (test code = SUJATHA) NEGATIVE NEGATIVE UA LEUKOCYTE ESTERASE W REFLEX (test code = LEUUR) NEGATIVE NEG ATIVE UA WBC (test code = WBCU) per HPF 0-5 UA RBC (test code = RBCU) per HPF 0-5 UA EPITHELIAL CELLS (test code = EPIU) per HPF Few UA BACTERIA (test code = BACU) per HPF NONE Urine Source? Catheter- XR CHEST 1 [id number] 15:47:00 FAX: Al Florez MD [phone] [place]: St: REG Name: KB MEDRAN[facility] : [birth year] Age/S: 83/M [address] [facility] Unit #: [id number] Loc: [place] [address] Phys: Al Florez MD Acct: [id number] Dis Date: Status: REG ER PHONE #: [phone] Exam Date: 04/12/2019 1525 FAX #: [phone] Reason: CODE STROKE EXAMS: CPT CODE: [id number] XR CHEST 1 V 83598 REASON FOR EXAM: CODE STROKE EXAM ORDER DATE: 04/12/2019 2:36 PM Ordering M.D.: Al Florez MD PROCEDURE: - XR CHEST 1 V NAVIN RISON: FINDINGS: Portable AP frontal view of the chest obtained a t 3:27 PM shows clear lungs without evidence of consolidation. There is no evidence of effusion. The heart size is within normal limits. Pulmo nary vasculatures are unremarkable. IMPRESSION: No active disea se. at 1547 Reported and signed by: Owen Harden M.D. CC: Al Florez MD Technologist: Yola Doan(R) Trnscrd Date/Time/By: 9 (8924) : By: CathyVTL Orig Print D/T: S: 04/12/2019 (0592) PAGE 1 Signed Report BASIC METABOLIC [id number] 15:43:00* Test Item Value Reference Range Interpretation Comments SODIUM (test code = NA) 150 mmol/L 136-145 H POTASSIUM (test code = K) 4.1 mmol/L 3.5-5.1 N CHLORIDE (test code = CL) 114.0 mmol/L 98-107 H CARBON DIOXIDE (test code = CO2) 24.0 mmol/L 21-32 N ANION GAP (test code = GAP) 16.1 10-20 N GLUCOSE (test code = GLU) 119 mg/dL 74-106 H BLOOD UREA NITROGEN (test code = BUN) 21 mg/dL 7-18 H GLOMERULAR FILTRATION RATE (test code = GFR) > 60 mL/min >=60 Estimated GFR by using Modified MDRD formula.Chronic kidney disease is defined as either kidney damageor GFR <60 mL/min/1.73 m2 for >3 months. CREATININE (test code = CREAT) 1.00 mg/dL 0.7-1.3 N BUN/CREATININE RATIO (test code = BUN/CREA) 21.3 10-20 H CALCIUM (test code = CA) 8.9 mg/dL 8.5-10.1 N [id number] 15:43:00* Test Item Value Reference Range Interpretation Comments TROPONIN-I (test code = TROPI) 0.017 ng/mL 0-0.045 N [id number] 15:34:00* Test Item Value Reference Range Interpretation Comments ALCOHOL (test code = ALC) < 3 mg/dL 0.0-3.0 N -- INTERPRETIVE DATA NOTE: POSITIVE SCREENING RESULTS SHOULD BE CONSIDERED PRESUMPTIVE.WHEN COLLECTED FOR MEDICAL PURPOSES ONLY. SPECIMEN WILL NOTBE COLLECTED BY CHAIN OF CUSTODY.IF A CONFIRMATION OF POSITIVE RESULTS IS DESIRED, ACONFIRMATION TEST MUST BE REQUESTED BY THE PHYSICIAN AT ANADDITIONAL CHARGE TO THE PATIENT. [id number] 15:34:00* Test Item Value Reference Range Interpretation Comments AMMONIA (test code = AMM) 23 umol/L 11-32 N BASIC METABOLIC [id number] 15:30:00* Test Item Value Reference Range Interpretation Comments SODIUM (test code = NA) 150 mmol/L 136-145 H POTASSIUM (test code = K) 4.1 mmol/L 3.5-5.1 N CHLORIDE (test code = CL) 114.0 mmol/L 98-107 H CARBON DIOXIDE (test code = CO2) mmol/L 21-32 ANION GAP (test code = GAP) 10-20 GLUCOSE (test code = GLU) mg/dL 74-106 BLOOD UREA NITROGEN (test code = BUN) mg/dL 7-18 GLOMERULAR FILTRATION RATE (test code = GFR) mL/min >=60 CREATININE (test code = CREAT) mg/dL 0.7-1.3 BUN/CREATININE RATIO (test code = BUN/CREA) 10-20 CALCIUM (test code = CA) mg/dL 8.5-10.1 [id number] 15:30:00* Test Item Value Reference Range Interpretation Comments TROPONIN-I (test code = TROPI) ng/mL 0-0.045 CBC W/AUTO [id number] 14:47:00* Test Item Value Reference Range Interpretation Comments WHITE BLOOD CELL (test code = WBC) 7.0 K/mm3 4.5-12.5 N RED BLOOD CELL (test code = RBC) 4.33 mill/mm3 4.0-5.8 N HEMOGLOBIN (test code = HGB) 14.1 gram/dL 13.0-17.5 N HEMATOCRIT (test code = HCT) 40.8 % 42.0-52.0 L MEAN CELL VOLUME (test code = MCV) 94.2 fL 80-98 N MEAN CELL HGB (test code = MCH) 32.6 picogram 27.0-33.0 N MEAN CELL HGB CONCETRATION (test code = MCHC) 34.6 gram/dL 33.0-36. 0 N RED CELL DISTRIBUTION WIDTH (test code = RDW) 12.3 % 11.6-16. 2 N RED CELL DISTRIBUTION WIDTH SD (test code = RDW-SD) 42.7 fL 37 .0-51.0 N PLATELET COUNT (test code = PLT) 188 K/mm3 150-450 N MEAN PLATELET VOLUME (test code = MPV) 10.5 fL 6.7-11.0 N NEUTROPHIL % (test code = NT%) 72.7 % 39.0-69.0 H IMMATURE GRANULOCYTE % (test code = IG%) 0.4 % 0.0-5.0 N LYMPHOCYTE % (test code = LY%) 15.8 % 25.0-55.0 L MONOCYTE % (test code = MO%) 10.2 % 0.0-10.0 H EOSINOPHIL % (test code = EO%) 0.3 % 0.0-5.0 N BASOPHIL % (test code = BA%) 0.6 % 0.0-1.0 N NUCLEATED RBC % (test code = NRBC%) 0.0 % 0-0 N NEUTROPHIL # (test code = NT#) 5.05 K/mm3 1.8-7.7 N IMMATURE GRANULOCYTE # (test code = IG#) 0.03 x10 3/uL 0-0.03 N LYMPHOCYTE # (test code = LY#) 1.10 K/mm3 1.0-5.0 N MONOCYTE # (test code = MO#) 0.71 K/mm3 0-0.8 N EOSINOPHIL # (test code = EO#) 0.02 K/mm3 0.0-0.5 N BASOPHIL # (test code = BA#) 0.04 K/mm3 0.0-0.2 N NUCLEATED RBC # (test code = NRBC#) 0.00 K/mm3 0.0-0.1 N MANUAL DIFF REQUIRED (test code = MDIFF) NO - CT HEAD/BRAIN W/O [id number] 14:47:00 Name: KB VACA [facility] : 1935 Age/S: 83 / M [address] Unit #: [id number] Loc: [place] [address] Phys: Al Florez MD Acct: [id number] Dis Date: Status: REG ER PHONE #: [phone] Exam Date: 04/12/2019 1433 FAX #: [phone] Reason: CODE STROKE EXAMS: CPT CODE: [id number] CT HEAD/BRAIN W/O CONT 33986 HISTORY: CODE STROKE TECHNIQUE: Noncontrast 2.[address] of the head. Examination acquired within 24 hours of arrival. Automated exposure control for dose reduction. COMPARISON: None FINDINGS: No lacerations or contusions of the scalp or facial soft tissues.. Calvarium and skull base are intact. No acute hemorrhage. No intracranial mass, mass effect, or midline shift. No effacement of the sulci or ghosh-white matter interface to suggest acute infarct. There is diffuse cortical atrophy. There is decreased attenuation of the periventricular white matter compatible with microvascular ischemic changes. There are calcifications in the bilateral basal ganglia. No hydrocep halus.. No extra-axial fluid collection. Visualized paranasal sin uses are clear. Mastoid air cells and middle ear cavities are clear. Prior lens extraction bilaterally. IMPRESSION: No acute intracranial process. Diffuse cortical atrophy and microvascular ischemic changes of the white matter. P reliminary findings were reported to Dr. Florez by telephone at 2:45 PM S [facility] 2018. Electronically Signed by Francis Valenzuela MD on 2018 at 1447 Reported and signed by: Francis Valenzuela MD PAGE 1 Signed Report (CONTINUED) Name: [facility] : 1935 Age/S: 83 / M [address] Unit #: [id number] Loc: [place] [address] Phys: Miguel A Florez MD Acct: [id number] Dis Date: Status: REG ER PHONE #: Exam Date: 04/12/2019 1433 FAX #: Reason: CODE STROKE EXAMS: CPT CODE: [id number] CT HEAD/BRAIN W/O CONT 15082 <Continued> CC: Al Florez MD Technologist:Nataliia Colin RT(R),CT CTDI: DLP: Trnscb Date/Time: 04/12/2019 (6655) [email or web address] Orig Print D/T: S: 04/12/2019 (9192) PAGE 2 Signed Report PROTHROMBIN [id number] 14:46:00* Test Item Value Reference Range Interpretation Comments PROTHROMBIN TIME PATIENT (test code = PTP) 14.0 seconds 9.0-14.0 N INTERNATIONAL NORMAL RATIO (test code = INR) 1.2 0.8-1.2 N The therapeutic range for oral anticoagulant therapy formost indications is an international normalized ratio (INR)of between 2.0 and 3.0. The recommended therapeutic INRrange for various clinical situations is listed below: Clinical Situation INR range Pulmonary e mbolism treatment (2.0-3.0)Venous thrombosis treatmentVenous thrombosis prophylaxis (high risk surgery)Prevention of systemic embolism from: Acute myocardial infarction Valvular heart disease Atrial fibrillation Mechanical prosthetic heart valves (2.5-3.5) IS PATIENT ON ANTICOAGULANTS? NTHROMBOPLASTIN TIME [id number] 14:46:00* Test Item Value Reference Range Interpretation Comments THROMBOPLASTIN TIME PARTIAL (test code = PTT) 37.3 seconds 25.0-36. 5 H IS PATIENT ON ANTICOAGULANTS? N
[2020-03-15 09:45] LABS: BASOPHILS # (AUTO) 0.1 (0.0-0.1); BASOPHILS % 0.5 % (0.0-1.0); EOSINOPHILS % 0.1 % (0.0-6.0); HEMATOCRIT 42.9 % (38.2-49.6); HEMOGLOBIN 14.3 g/dL (14.0-18.0); LYMPHOCYTES # (AUTO) 0.8 (1.0-3.2); LYMPHOCYTES % 3.6 % (18.0-39.1); MEAN CORPUSCULAR HEMOGLOBIN 32.2 pg (28-32); MEAN CORPUSCULAR HGB CONC 33.3 g/dL (31-35); MEAN CORPUSCULAR VOLUME 96.6 fL (81-99); MONOCYTES # (AUTO) 1.8 (0.2-0.8); MONOCYTES % 8.2 % (4.4-11.3); NEUTROPHILS # (AUTO) 19.2 (2.1-6.9); NEUTROPHILS % 86.8 % (38.7-80.0); PLATELET COUNT 134 x10e3/uL (140-360); RED BLOOD COUNT 4.44 x10e6/uL (4.3-5.7); RED CELL DISTRIBUTION WIDTH 13.5 % (11.7-14.4)
[2020-03-15] MEDS ORDERED: FENTANYL 2000MCG/NS 250 250 ML IV SCH (10:00)
[2020-03-15] MEDS ORDERED: MIDAZOLAM HCL 5MG/ML 10ML VIAL 100 ML IV PRN (10:00)
[2020-03-15 10:11] LABS: BILIRUBIN,URINE NEGATIVE (NEGATIVE); CLARITY,URINE CLEAR (CLEAR); COLOR,URINE YELLOW (YELLOW); KETONES,URINE TRACE (NEGATIVE); LEUKOCYTE ESTERASE ,URINE NEGATIVE (NEGATIVE); NITRITE,URINE NEGATIVE (NEGATIVE); PROTEIN,URINE DIPSTICK TRACE (NEGATIVE); URINE UROBILINOGEN 0.2 mg/dL (0.2 - 1)
[2020-03-15 10:18] LABS: ALBUMIN 2.4 g/dL (3.5-5.0); ALBUMIN/GLOBULIN RATIO 0.6 (0.8-2.0); ANION GAP 23.4 mmol/L (8-16); CALCIUM 8.9 mg/dL (8.4-10.2); CREATININE, SERUM 4.17 mg/dL (0.72-1.25); POTASSIUM 4.4 mmol/L (3.5-5.1)
[2020-03-15 10:24] LABS: WBC,URINE (MAN) 0-5 /HPF (0-5)
[2020-03-15] MEDS ORDERED: SODIUM CHLORIDE 0.9% 500ML 500 ML ONE (10:24)
[2020-03-15 10:25] LABS: MUCUS,URINE MODERATE (RARE)
--- NOTE | 2020-03-15 11:15 | NUR ---
Attempted to call patient's emergency contacts Jose De Jesus Blair (son) and Ashanti Blair (Spouse) for verbal consent to transfer. No answer at either number. No message left due to no way to ensure correct information.
--- NOTE | 2020-03-15 11:20 | NUR ---
Midazolam drip obtained from pharmacy for sedation for intubation. Bag was spiked but the medication was not needed. Medication wasted due to being spiked. Mikel Zuleta RN ER director notified.
--- NOTE | 2020-03-15 11:26 | Diagnostic Imaging Report ---
EXAMINATION: CHEST SINGLE (NOT PORTABLE) INDICATION: Sepsis COMPARISON: None FINDINGS: LINES/TUBES:Endotracheal tube terminates 4 cm above the rebeca. EKG leads overlie the chest. LUNGS:The lungs are well-inflated. Mild bibasilar opacities. PLEURA:No pleural effusion or pneumothorax. MEDIASTINUM:The cardiomediastinal silhouette appears normal in size and shape. Atherosclerotic calcifications of the thoracic aorta. BONES/SOFT TISSUES:No acute osseous injury. Sternotomy wires in place. ABDOMEN:No free air under the diaphragm. IMPRESSION: Endotracheal tube terminates 4 cm above the rebeca. Mild bibasilar opacities may represent subsegmental atelectasis or superimposed aspiration or pneumonia. Signed by: Navneet Saldivar MD on 03/15/2020 11:22 AM
[2020-03-15] MEDS ORDERED: NOREPINEPHRINE 8 MG/D5W 250 ML 250 ML ONE (11:27)
--- NOTE | 2020-03-15 11:28 | Diagnostic Imaging Report ---
EXAMINATION: Head and cervical spine CT without contrast. HISTORY: 84-year-old male with alteration of consciousness, confusion, hypoxic and intubated. Respiratory distress, sepsis. COMPARISON: None. TECHNIQUE: Multidetector axial images were obtained without contrast from the foramen magnum to the vertex and through the cervical spine. Dose modulation, iterative reconstruction, and/or weight based adjustment of the mA/kV was utilized to reduce the radiation dose to as low as reasonably achievable. HEAD CT FINDINGS: Skull/scalp: No lytic or blastic lesions. No fractures. Parenchyma: Few scattered and mildly confluent periventricular white matter hypodensities, most likely nonspecific chronic microvascular ischemic changes. No mass, hemorrhage or CT evidence of acute vascular insult. Brain volume: Mild generalized supra and infratentorial volume loss. Ventricles: No hydrocephalus or displacement. Arteries: No density suggestive of thrombus. Dural sinuses: No abnormal density. Extra-axial spaces: No abnormal density. Foramen magnum: No mass, Chiari malformation, or basilar invagination. Sella: No obvious mass. Paranasal/mastoid sinuses: Imaged portions unremarkable. CERVICAL SPINE CT FINDINGS: Alignment:Normal alignment and lordosis. Soft tissues: Partially visualized endotracheal tube.. Vertebrae: Status post ACDF from C4 to C6, inferior corpectomy at C4 and C5 and interbody bone grafting, solid anterior interbody fusion. No hardware failure/fracture or loosening. Degenerative changes: C1-C2: Normal C2-C3: Uncovertebral and facet arthrosis. Mild bilateral foraminal narrowing. C3-C4: Disc osteophyte complex formation, uncovertebral and facet arthrosis. Mild spinal canal and moderate foraminal stenoses. C4-C6: Few surgical levels. Moderately severe foraminal stenosis bilaterally. C6-C7: Disc osteophyte corpus formation, uncovertebral and facet arthrosis. Moderate spinal canal and bilateral foraminal stenoses. C7-T1: Mild bilateral facet arthrosis. Mild foraminal narrowing. IMPRESSION: Head CT: 1. No acute intracranial hemorrhage or cortical infarcts. 2. Mild chronic microvascular ischemic changes. Cervical spine CT: 1. No acute fractures or dislocations. 2. Chronic degenerative changes as described. 3. Status post ACDF from C4 to C6 as above. Note: Acute post traumatic spinal cord, vascular or ligamentous injury cannot adequately be assessed with CT. Signed by: Dr. Juana Lewis M.D. on 03/15/2020 11:25 AM
--- NOTE | 2020-03-15 11:31 | Diagnostic Imaging Report ---
EXAM: CT Chest WITHOUT intravenous contrast 03/15/2020 10:37 AM INDICATION: Shortness of breath, altered mental status COMPARISON: Chest radiograph of the same day TECHNIQUE: Chest was scanned utilizing a multidetector helical scanner from the lung apex through the level of the adrenal glands without administration of IV contrast. Coronal and sagittal reformations were obtained. Routine protocol was performed. IV CONTRAST: None RADIATION DOSE: Total DLP: 495 mGy*cm. Dose modulation, iterative reconstruction, and/or weight based adjustment of the mA/kV was utilized to reduce the radiation dose to as low as reasonably achievable. COMPLICATIONS: None FINDINGS: LINES/ TUBES: Endotracheal tube terminates in the midthoracic trachea. LUNGS AND AIRWAYS: The central airways are patent. Groundglass and consolidative opacities in the dependent portions of the right greater than left lower lobes. Mild scattered left upper lobe and right middle lobe groundglass opacities. PLEURA: The pleural spaces are clear. HEART AND MEDIASTINUM: The thyroid gland is normal. No supraclavicular, axillary, mediastinal or hilar lymphadenopathy. The heart is not enlarged. No pericardial effusion. Diffuse atherosclerotic calcifications involve the thoracic aorta, coronary arteries, and proximal great vessels. UPPER ABDOMEN: Limited noncontrast images of the upper abdomen demonstrate no acute abnormality. 4.5 cm exophytic right upper pole renal cyst. BONES: No acute osseous injury. No suspicious lytic or blastic lesions. Sternotomy wires in place. SOFT TISSUES: Unremarkable. IMPRESSION: Multifocal ground glass and consolidative opacities, most notably at the right greater than left dependent lower lobes. Findings are concerning for multifocal pneumonia. Diffuse atherosclerotic arterial calcifications including of the coronary arteries. Signed by: Navneet Saldivar MD on 03/15/2020 11:28 AM
[2020-03-15] MEDS ORDERED: PIPERACILLIN/TAZO 4.5 GM 100 ML IV STA (11:37)
[2020-03-15 11:40] LABS: ABG HCO3 21 mmol/L (22-26); ABG PCO2 31 mmHg (35-45); ABG PH 7.43 (7.35-7.45); ABG PO2 56 mmHg (80-105); ABG TCO2 22
[2020-03-15] MEDS ORDERED: SUCCINYLCHOLINE CHLORIDE 20 MG/ML 10ML VIAL ONE (14:11)
[2020-03-15] MEDS ORDERED: ETOMIDATE 2 MG/ML 10 ML INJ IV ONE (14:11)
== END 2020-03-15 12:32 | disposition other institution (70) ==
LOC: ER 09:12
DX: J96.91 Respiratory failure, unspecified with hypoxia (principal); K21.9 Gastro-esophageal reflux disease without esophagitis; E78.00 Pure hypercholesterolemia, unspecified
CPT/HCPCS: 31500; 36415; 51700; 70450; 71045; 71250; 72125; 80053; 81001; 82805; 83605; 83880; 84484; 85025; 87040; 87086; 93005; 94002; 94003; 99285; J0171; J0330; J2250; J2543; J7030; J7040